=== PATIENT | female | born 1995 | race Caucasian/White ===

== ENCOUNTER 2017-11-09 23:40 | Emergency (ER) | payer MEDICAID, SELFPAY ==
[2017-11-09 23:44] VITALS: BP 143/86; PULSE 112; RESP 18; TEMP 37.4; O2SAT 99; BMI 35.7
[2017-11-10 00:13] LABS: Strep Scrn Group A (Rapid) Negative (Negative)
--- NOTE | 2017-11-10 01:22 | HMH.EDGENADL ---
ED Disposition Clinical Impression: Acute sinusitis Qualifiers: Sinusitis location: unspecified location Recurrence: not specified as recurrent Qualified Code(s): J01.90 - Acute sinusitis, unspecified Disposition: Home, Self-Care Condition on Discharge: Good Instructions: Sinusitis Additional Instructions: Please take the medications prescribed as directed, follow-up with PCP if not better within 5-7 days. Prescriptions: Amoxicillin/Potassium Clav [Augmentin 875-125 Tablet] 1 tab PO Q12H #14 tab Cetirizine HCl [Zyrtec] 10 mg PO DAILY #30 cap Forms: Work/School Release Time of Disposition: :24 - Critical Care Critical Care Time: No Attestation: On 11/09/17, the high probability of a clinically significant, sudden or life threatening deterioration of the following system(s) required my full and direct attention, intervention and personal management. The time I documented below is in addition to time spent performing reported procedures but includes the following listed in this critical care notation. Medical Decision Making - Medical Records Medical records reviewed: Yes: I reviewed the patient's medical records. Vital Signs: 11/09/17 23:44 Temperature 99.3 F Temperature Source Oral Pulse Rate [Right Radial] 112 H Respiratory Rate 18 Blood Pressure [Right Arm] 143/86 Blood Pressure Mean [Right Arm] 105 Blood Pressure Source [Right Arm] Automatic Cuff Blood Pressure Position [Right Arm] Sitting 02 Sat by Pulse Oximetry 99 Oxygen Delivery Method Room Air - Lab Data Lab results reviewed: Yes: I reviewed the patient's lab results. Lab Results 11/09/17 23:54: Influenza Type A Ag Negative, Influenza Type B Ag Negative, Group A Strep Rapid Negative Orders (Tests/Meds): ORDERS Category Date Time Status Strep Screen Confirmation Stat Micro 11/09/17 23:54 Received - Jose Carlos Inquiry Pt receiving controlled substance: No - Reevaluation(s) Time: 01:15 Reevaluation #1: Upon evaluation patient is asleep, in no acute distress, afebrile. Advised patient of results obtained, also need to follow-up with PCP within 2-3 days if not better. General Adult HPI - General Chief complaint: Shortness of Breath/Dyspnea Stated complaint: Coughing and Sore Throat Mode of Arrival: Ambulatory Limitations: No Limitations Description of Symptoms (Recalled from ER Triage Doc. by RN): PT REPORTS SORE THROAT, COUGH AND CONGESTION X3 DAYS - History of Present Illness HPI narrative: This is a 22-year-old female patient arriving to the emergency room with subjective fever, body aches, sore throat, cough and congestion cough for the past 5 days. Patient denies any recent travel, denies any recent exposure to sick contacts. MD complaint: Sore throat, congestion, body aches, subjective fever Onset (ago): day(s) (2) Severity scale (1-10): 2 Consistency: intermittent Relieving factors: medication (Motrin/Tylenol) Associated symptoms: denies other symptoms Treatments prior to arrival: other ([place] down) - Related Data Previous Rx's Medication Instructions Recorded Amoxicillin/Potassium Clav 1 tab PO Q12H #14 tab 11/10/17 [Augmentin 875-125 Tablet] Cetirizine HCl [Zyrtec] 10 mg PO DAILY #30 cap 11/10/17 Allergies Allergy/AdvReac Type Severity Reaction Status Date / Time strawberry Allergy Unknown HIVES, Verified 11/09/17 23:52 [From STRAWBERRIES SWELLING (FOOD/DRUG)] OF THROAT From STRAWBERRIES (FOOD/DRUG) Allergy Unknown HIVES, Uncoded 10/14/17 14:58 SWELLING OF THROAT [facility] History I have reviewed the patient's past medical history: Yes Other Surgeries: Yes: No Previous Surgery Amputation: No Fractures: No - *Social History Smoking Status: Current every day smoker Tobacco Type: cigarettes Alcohol Intake: never - Psychiatric History Expresses thoughts of harming self/others: None Suicide Plan Description: No Plan ROS Obtained: Yes All systems review
== END 2017-11-10 01:39 | disposition home or self-care (01) ==
PROVIDERS: Emergency Provider Emergency Medicine; Family Provider Emergency Medicine
DX: J01.90 Acute sinusitis, unspecified (principal)
CPT/HCPCS: 87275; 87276; 87430; 99282

== ENCOUNTER 2017-11-20 10:26 | Emergency (ER) | payer MEDICAID, SELFPAY ==
[2017-11-20 12:21] VITALS: BP 132/78; PULSE 86; RESP 20; TEMP 37.1; O2SAT 97; BMI 36.8
[2017-11-20 12:41] LABS: Color,Urine Yellow (Yellow)
[2017-11-20 12:42] LABS: Apearance,Urine Cloudy (Clear); Bilirubin,Urine Negative (Negative); Blood, Urine Negative (Negative); Glucose,Urine (UA) Negative (Negative); Ketones,Urine Negative (Negative); Protein,Urine Negative (Negative); UTC Leukocyte Esterase,Urine Trace (Negative); UTC Nitrate,Urine Negative (Negative); Urobilinogen,Urine 0.2 EU/dl (0.2)
--- NOTE | 2017-11-20 13:02 | HMH.EDUTC ---
[facility] [place] Disposition Clinical Impression: Vaginal leukorrhea, Vaginal odor Disposition: Home, Self-Care Condition on Discharge: Good Instructions: DI for Vaginal Discharge Additional Instructions: Start flagyl although I suggest you be further evaluated first. As we discussed, if this is bacterial vaginosis, this will treat it. However, if this is a sexually transmitted disease or yeast infection, this is not the appropriate treatment AND you are at risk for further damage until treated appropriately AND if you continue to have intercourse you risk exposing others. I advised an exam and further testing today but I understand you declined and would rather see the health department. I advise you call them TODAY and schedule a follow up appt ALVIN!!! avoid intercourse until further testing to rule out sexually transmitted infections Prescriptions: metroNIDAZOLE [metroNIDAZOLE 500mg Tablet] 500 mg PO BID #14 tab Referrals: Sree Galloway MD [Primary Care Provider] - (Call primary care, OB Dr. Diaz, or the health department immediately for follow up appointment. You need a pelvic exam and further testing to rule out sexually transmitted diseases and/or yeast infection as the cause and therefore, reduce your risk for complications due to untreated sexually transmitted diseases) Time of Disposition: 13:15 Medical Decision Making Vital Signs: 11/20/17 12:21 Temperature 98.7 F Temperature Source Temporal Artery Scan Pulse Rate [Right Radial] 86 Respiratory Rate 20 Blood Pressure [Right Arm] 132/78 Blood Pressure Mean [Right Arm] 96 Blood Pressure Source [Right Arm] Automatic Cuff Blood Pressure Position [Right Arm] Sitting 02 Sat by Pulse Oximetry 97 Oxygen Delivery Method Room Air - Lab Data Lab results reviewed: Yes: I reviewed the patient's lab results. Lab Results 11/20/17 12:39: Urine Color Yellow, Urine Appearance Cloudy, Urine pH 6.0, Ur Specific [place] 1.020, Urine Protein Negative, Urine Glucose (UA) Negative, Urine Ketones Negative, Urine Blood Negative, Urine Nitrate Negative, Urine Bilirubin Negative, Urine Urobilinogen 0.2, Ur Leukocyte Esterase Trace - Jose Carlos Inquiry Pt receiving controlled substance: No [facility] [place] HPI - General Stated complaint: discharge with order Time Seen by Provider: 11/20/17 13:03 Mode of Arrival: Family Vehicle Source of Information: Patient Limitations: No Limitations Description of Symptoms (Recalled from Triage Doc. by RN): PT STATES SHE HAS A VAGINAL INFECTION WITH DISCHARGE FOR 1 WEEK. HEENT Symptoms (Recalled from RN notes): No Resp Symptoms (Recalled from RN notes): No Skin Symptoms (Recalled from RN notes): No MS Symptoms (Recalled from RN notes): No Functional Status (Recalled from RN notes): NA - History of Present Illness Provider Complaint: c/o I think I have a bacterial infection down there . Vaginal discharge x 1 week. Started as clear and sticky, then thick and white and now since yesterday, terrible odor . New male sexual partner lately . Was with a different male 3 months prior. LMP earlier this month. Normal. Hasn't taken or tried anything this time . Reports a hx of vaginal bacterial infections approx every 3 months. Last one treatment with clindamycin started by Dr. Diaz after vaginal exam and testing . Didn't help. [facility] and started on flagyl. Requesting that again today and that is all I am here for . Denies abdominal pain currently. 3-4 days ago right suprapubic pain but that resolved quickly and hasn't reoccured. No pain with intercourse this week. - Related Data Previous Rx's Medication Instructions Recorded Amoxicillin/Potassium Clav 1 tab PO Q12H #14 tab 11/10/17 [Augmentin 875-125 Tablet] Cetirizine HCl [Zyrtec] 10 mg PO DAILY #30 cap 11/10/17 metroNIDAZOLE [metroNIDAZOLE 500mg 500 mg PO BID #14 tab 11/20/17 Tablet] Allergies Allergy/AdvReac Type Severity Reaction Status Date / Time joyce Beavers
--- NOTE | 2017-11-20 13:09 | ED_ITS ---
[facility] – [place] Disposition Clinical Impression: Vaginal leukorrhea, Vaginal odor Disposition: Home, Self-Care Condition on Discharge: Good Instructions: DI for Vaginal Discharge Additional Instructions: Start flagyl although I suggest you be further evaluated first. As we discussed, if this is bacterial vaginosis, this will treat it. However, if this is a sexually transmitted disease or yeast infection, this is not the appropriate treatment AND you are at risk for further damage until treated appropriately AND if you continue to have intercourse you risk exposing others. I advised an exam and further testing today but I understand you declined and would rather see the health department. I advise you call them TODAY and schedule a follow up appt ALVIN!!! avoid intercourse until further testing to rule out sexually transmitted infections Prescriptions: metroNIDAZOLE [metroNIDAZOLE 500mg Tablet] 500 mg PO BID #14 tab Referrals: Sree Galloway MD [Primary Care Provider] - (Call primary care, OB Dr. Diaz, or the health department immediately for follow up appointment. You need a pelvic exam and further testing to rule out sexually transmitted diseases and/or yeast infection as the cause and therefore, reduce your risk for complications due to untreated sexually transmitted diseases) Time of Disposition: 13:15 Medical Decision Making Vital Signs: 11/20/17 12:21 Temperature 98.7 F Temperature Source Temporal Artery Scan Pulse Rate [Right Radial] 86 Respiratory Rate 20 Blood Pressure [Right Arm] 132/78 Blood Pressure Mean [Right Arm] 96 Blood Pressure Source [Right Arm] Automatic Cuff Blood Pressure Position [Right Arm] Sitting 02 Sat by Pulse Oximetry 97 Oxygen Delivery Method Room Air - Lab Data Lab results reviewed: Yes: I reviewed the patient's lab results. Lab Results 11/20/17 12:39: Urine Color Yellow, Urine Appearance Cloudy, Urine pH 6.0, Ur Specific [place] 1.020, Urine Protein Negative, Urine Glucose (UA) Negative, Urine Ketones Negative, Urine Blood Negative, Urine Nitrate Negative, Urine Bilirubin Negative, Urine Urobilinogen 0.2, Ur Leukocyte Esterase Trace - Jose Carlos Inquiry Pt receiving controlled substance: No [facility] [place] HPI - General Stated complaint: discharge with order Time Seen by Provider: 11/20/17 13:03 Mode of Arrival: Family Vehicle Source of Information: Patient Limitations: No Limitations Description of Symptoms (Recalled from Triage Doc. by RN): PT STATES SHE HAS A VAGINAL INFECTION WITH DISCHARGE FOR 1 WEEK. HEENT Symptoms (Recalled from RN notes): No Resp Symptoms (Recalled from RN notes): No Skin Symptoms (Recalled from RN notes): No MS Symptoms (Recalled from RN notes): No Functional Status (Recalled from RN notes): NA - History of Present Illness Provider Complaint: c/o I think I have a bacterial infection down there . Vaginal discharge x 1 week. Started as clear and sticky, then thick and white and now since yesterday, terrible odor . New male sexual partner lately . Was with a different male 3 months prior. LMP earlier this month. Normal. Hasn't taken or tried anything this time . Reports a hx of vaginal bacterial infections approx every 3 months. Last one treatment with clindamycin started by Dr. Diaz after vaginal exam and testing . Didn't help. [facility] and started on flagyl. Requesting that again today and that is all I am here for . Denies abdominal pain currently. 3-4 days ago right suprapubic pain but that resolved quickly and hasn't re
== END 2017-11-20 13:19 | disposition home or self-care (01) ==
PROVIDERS: Emergency Provider Nurse Practitioner Family; Family Provider Emergency Medicine; PCP Emergency Medicine
DX: N89.8 Other specified noninflammatory disorders of vagina (principal); F17.210 Nicotine dependence, cigarettes, uncomplicated
CPT/HCPCS: 81003; 99201

== ENCOUNTER 2017-12-30 13:12 | Emergency (ER) | payer MEDICAID, SELFPAY ==
[2017-12-30 13:27] VITALS: BP 132/80; PULSE 92; RESP 18; TEMP 36.6; O2SAT 97; BMI 35.7
--- NOTE | 2017-12-30 13:37 | HMH.EDUTC ---
[facility] [place] Impression: Viral upper respiratory illness Disposition: Home, Self-Care Condition on Discharge: Good Instructions: DI for Viral Upper Respiratory Infection -- Adult Additional Instructions: * Monitor Temp. Tylenol and/or Ibuprofen as needed. ER if fever is no less than 101 despite alternating Tylenol and Ibuprofen * Encourage fluids, water, Gatorade, powerade, pedialyte if infant/toddler/or child * Warm salt water gargles for throat irritation *Warm fluids *Sore throat lozenges *Sleep elevated *humidifier or vaporizer Lots of rest Increase fluids, water, Gatorade, powerade *Flonase 2 sprays each nostril daily but may take 2-3 days to notice improvement with it *Bromfed may cause drowsiness. Know how it effect you or your child. Before driving, caring for small children or sending your child to school *Your throat swab was sent to lab for culture. Those results area typically sent to your primary care physician. Be sure to follow up in 2-3 days if no improvement so they can review those results and treat if necessary If you dont have primary care I recommend you get one, but in the mean time you will have to return to a walk in clinic Follow up IMMEDIATELY for new or worsening of symptoms OR no noticeable improvement over the next 48-72 hours. 911 immediately for any life threatening symptoms such as chest pain or difficulty breathing Although some tonsil stones may be difficult to see, they can still cause noticeable symptoms. Symptoms of tonsil stones can include: bad breath sore throat trouble swallowing ear pain ongoing cough swollen tonsils white or yellow debris on the tonsil Preventing tonsil stones: If you have tonsil stones, they may occur on a regular basis. Fortunately, there are steps you can take to prevent them. These steps include: practicing good oral hygiene, including cleaning the bacteria off the back of your tongue when you brush your teeth stopping smoking gargling with salt water drinking plenty of water to stay hydrated Gargling Gargling vigorously with salt water can ease throat discomfort and may help dislodge tonsil stones. Salt water may also help to change your mouth chemistry. It can also help get rid of the odor tonsil stones can cause. Dissolve 1/2 teaspoon salt in 8 ounces of warm water, and gargle. Cough You may first discover that you have tonsil stones when you cough one up. Energetic coughing can help loosen stones. Prescriptions: Brompheniramine/Pseudoephed/Dm [Bromfed DM Cough Syrup 5mL] 10 ml PO Q4HP PRN #350 ml PRN Reason: Cough Referrals: Sree Galloway MD [Primary Care Provider] - Forms: Work/School Release Time of Disposition: 13:48 Medical Decision Making - Medical Records Medical records reviewed: Yes: I reviewed the patient's medical records. Vital Signs: 12/30/17 13:27 Temperature 97.8 F Temperature Source Temporal Artery Scan Pulse Rate [Right] 92 H Respiratory Rate 18 Blood Pressure [Right Arm] 132/80 Blood Pressure Mean [Right Arm] 97 Blood Pressure Source [Right Arm] Automatic Cuff Blood Pressure Position [Right Arm] Sitting 02 Sat by Pulse Oximetry 97 Oxygen Delivery Method Room Air - Lab Data Lab results reviewed: Yes: I reviewed the patient's lab results. - Jose Carlos Inquiry Pt receiving controlled substance: No Jose Carlos was queried for this patient: No [facility] [place] - General Stated complaint: sore throat cough Mode of Arrival: Ambulatory Source of Information: Patient Limitations: No Limitations Description of Symptoms (Recalled from Triage Doc. by RN): SORE THROAT, COUGH HEENT Symptoms (Recalled from RN notes): Yes Resp Symptoms (Recalled from RN notes): No Skin Symptoms (Recalled from RN notes): No MS Symptoms (Recalled from RN notes): No Functional Status (Recalled from RN notes): N - History of Present Illness Provider Complaint: Patient state that she has been having sore throat, cough and chantel
--- NOTE | 2017-12-30 13:40 | ED_ITS ---
[facility] [place] Clinical Impression: Viral upper respiratory illness Disposition: Home, Self-Care Condition on Discharge: Good Instructions: DI for Viral Upper Respiratory Infection -- Adult Additional Instructions: * Monitor Temp. Tylenol and/or Ibuprofen as needed. ER if fever is no less than 101 despite alternating Tylenol and Ibuprofen * Encourage fluids, water, Gatorade, powerade, pedialyte if /toddler/or child * Warm salt water gargles for throat irritation *Warm fluids *Sore throat lozenges *Sleep elevated *humidifier or vaporizer Lots of rest Increase fluids, water, Gatorade, powerade *Flonase 2 sprays each nostril daily but may take 2-3 days to notice improvement with it *Bromfed may cause drowsiness. Know how it effect you or your child. Before driving, caring for small children or sending your child to school *Your throat swab was sent to lab for culture. Those results area typically sent to your primary care physician. Be sure to follow up in 2-3 days if no improvement so they can review those results and treat if necessary If you don? t have primary care I recommend you get one, but in the mean time you will have to return to a walk in clinic Follow up IMMEDIATELY for new or worsening of symptoms OR no noticeable improvement over the next 48-72 hours. 911 immediately for any life threatening symptoms such as chest pain or difficulty breathing Although some tonsil stones may be difficult to see, they can still cause noticeable symptoms. Symptoms of tonsil stones can include: * bad breath * sore throat * trouble swallowing * ear pain * ongoing cough * swollen tonsils * white or yellow debris on the tonsil Preventing tonsil stones: If you have tonsil stones, they may occur on a regular basis. Fortunately, there are steps you can take to prevent them. These steps include: * practicing good oral hygiene, including cleaning the bacteria off the back of your tongue when you brush your teeth * stopping smoking * gargling with salt water * drinking plenty of water to stay hydrated Gargling Gargling vigorously with salt water can ease throat discomfort and may help dislodge tonsil stones. Salt water may also help to change your mouth chemistry. It can also help get rid of the odor tonsil stones can cause. Dissolve 1/2 teaspoon salt in 8 ounces of warm water, and gargle. Cough You may first discover that you have tonsil stones when you cough one up. Energetic coughing can help loosen stones. Prescriptions: Brompheniramine/Pseudoephed/Dm [Bromfed DM Cough Syrup 5mL] 10 ml PO Q4HP PRN # 350 ml PRN Reason: Cough Referrals: Sree Galloway MD [Primary Care Provider] - Forms: Work/School Release Time of Disposition: 13:48 Medical Decision Making - Medical Records Medical records reviewed: Yes: I reviewed the patient's medical records. Vital Signs: 12/30/17 13:27 Temperature 97.8 F Temperature Source Temporal Artery Scan Pulse Rate [Right] 92 H Respiratory Rate 18 Blood Pressure [Right Arm] 132/80 Blood Pressure Mean [Right Arm] 97 Blood Pressure Source [Right Arm] Automatic Cuff Blood Pressure Position [Right Arm] Sitting 02 Sat by Pulse Oximetry 97 Oxygen Delivery Method Room Air - Lab Data Lab results reviewed: Yes: I reviewed the patient's lab results. - Jose Carlos Inquiry Pt receiving controlled substance: No Jose Carlos was queried for this patient: No [facility] [place] - General Stated complaint: sore throat cough Mod
[2017-12-30 13:43] LABS: UTC Influenza A Antigen Negative (Negative); UTC Influenza B Antigen Negative (Negative); UTC Strep Screen (Rapid) Negative (Negative)
[2017-12-30 13:48] VITALS: BP 132/80; PULSE 90; RESP 18; TEMP 36.6
== END 2017-12-30 13:51 | disposition home or self-care (01) ==
PROVIDERS: Emergency Provider Nurse Practitioner; Family Provider Emergency Medicine; PCP Emergency Medicine
DX: J06.9 Acute upper respiratory infection, unspecified (principal); F17.210 Nicotine dependence, cigarettes, uncomplicated
CPT/HCPCS: 87804; 87880; 99203

== ENCOUNTER 2018-01-28 13:26 | Emergency (ER) | payer MEDICAID, SELFPAY ==
[2018-01-28 13:32] VITALS: BP 134/47; PULSE 87; RESP 16; TEMP 36.7; O2SAT 97; BMI 36.4
[2018-01-28 14:10] LABS: Strep Scrn Group A (Rapid) Negative (Negative)
--- NOTE | 2018-01-28 14:22 | HMH.EDWEAK ---
ED Disposition Clinical Impression: Pharyngitis Qualifiers: Pharyngitis/tonsillitis etiology: unspecified etiology Qualified Code(s): J02.9 - Acute pharyngitis, unspecified Disposition: Home, Self-Care Condition on Discharge: Good Instructions: DI for Pharyngitis/Tonsillopharyngitis -- Adult Prescriptions: Amoxicillin/Potassium Clav [Augmentin 875-125 Tablet] 1 tab PO Q12H #20 tab Referrals: Sree Galloway MD [Primary Care Provider] - Time of Disposition: 14:27 - Critical Care Critical Care Time: No Attestation: On 01/28/18, the high probability of a clinically significant, sudden or life threatening deterioration of the following system(s) required my full and direct attention, intervention and personal management. The time I documented below is in addition to time spent performing reported procedures but includes the following listed in this critical care notation. Medical Decision Making - Medical Records Medical records reviewed: Yes: I reviewed the patient's medical records. - Jose Carlos Inquiry Pt receiving controlled substance: No Vital Signs: 01/28/18 13:32 01/28/18 14:42 Temperature 98.0 F 98.5 F Temperature Source Temporal Artery Scan Oral Pulse Rate 80 Pulse Rate [Left Radial] 87 Respiratory Rate 16 18 Blood Pressure 136/72 Blood Pressure [Right Arm] 134/47 Blood Pressure Mean [Right Arm] 76 Blood Pressure Source Automatic Cuff Blood Pressure Source [Right Arm] Automatic Cuff Blood Pressure Position Sitting Blood Pressure Position [Right Arm] Sitting 02 Sat by Pulse Oximetry 97 Oxygen Delivery Method Room Air Room Air - Lab Data Lab results reviewed: Yes: I reviewed the patient's lab results. Lab Results 01/28/18 13:45: Influenza Type A Ag Negative, Influenza Type B Ag Negative, Group A Strep Rapid Negative Orders (Tests/Meds): ORDERS Category Date Time Status Strep Screen Confirmation Stat Micro 01/28/18 13:45 Received - Reevaluation(s) Time: 14:20 Reevaluation #1: Patient appears to be medically stable, no acute distress, advised her that she will be started on antibiotics, given the physical exam, advised her to alternate Motrin Tylenol for pain control, drink plenty of fluids and follow-up with PCP if not better. Weakness HPI - General Chief complaint: Weakness Stated complaint: sore throat, coughing, chest congestion Time Seen by Provider: 01/28/18 14:27 Mode of Arrival: Ambulatory Limitations: No Limitations Description of Symptoms (Recalled from ER Triage Doc. by RN): Coughing and sore throat for three days. Productive cough with greenish/brown mucus. - History of Present Illness HPI Narrative: Patient is a 23-year-old female patient presented emergency room with subjective fever, runny nose and sore throat for the past 2 days, exposed to other sick contacts. Patient has a recent travel. Patient denies any shortness of breath, productive cough. Her nasal discharge is yellowish. MD Complaint: generalized weakness, lack of energy Onset (ago): day(s) (2) Duration: intermittent Location: generalized Associated symptoms: fever/chills, other (Sore throat, runny nose) - Related Data Home Medications Medication Instructions Recorded Confirmed Cetirizine HCl [Zyrtec] 10 mg PO DAILY 01/28/18 01/28/18 Previous Rx's Medication Instructions Recorded Amoxicillin/Potassium Clav 1 tab PO Q12H #20 tab 01/28/18 [Augmentin 875-125 Tablet] Allergies Allergy/AdvReac Type Severity Reaction Status Date / Time strawberry Allergy Unknown HIVES, Verified 12/30/17 13:31 [From STRAWBERRIES SWELLING (FOOD/DRUG)] OF THROAT azithromycin Allergy Verified 12/30/17 13:31 From STRAWBERRIES (FOOD/DRUG) Allergy Unknown HIVES, Uncoded 10/14/17 14:58 SWELLING OF THROAT [facility] History I have reviewed the patient's past medical history: Yes Medical History: Denies:: Cancer, Diabetes Mellitus Type 1, Diabetes Mary Alice
[2018-01-28 14:42] VITALS: BP 136/72; PULSE 80; RESP 18; TEMP 36.9; O2SAT 97
== END 2018-01-28 14:42 | disposition home or self-care (01) ==
PROVIDERS: Emergency Provider Emergency Medicine; Family Provider Emergency Medicine; PCP Emergency Medicine
DX: J02.9 Acute pharyngitis, unspecified (principal); E11.9 Type 2 diabetes mellitus without complications; F17.210 Nicotine dependence, cigarettes, uncomplicated
CPT/HCPCS: 87275; 87276; 87430; 99281

== ENCOUNTER → 2018-02-23 16:59 | Outpatient (CLI) | payer MEDICAID, SELFPAY ==
[2018-02-23 17:18] LABS: Urine Pregnancy, HCG Qual. Negative (Negative)
[2018-02-23 17:31] LABS: Basophils % 0.5 % (0.1-2.0); Eosinophils # 0.1 K/mm3 (0.0-0.4); Hematocrit 46.1 % (37.0-47.0); Hemoglobin 15.5 g/dL (12.2-16.2); Lymphocytes # 2.1 K/mm3 (0.7-4.5); Lymphocytes % 33.8 K/mm3 (10-50); Mean Corpuscular HGB Conc 33.7 g/dL (31.8-35.4); Mean Corpuscular Hemoglobin 31.6 pg (27.0-31.2); Mean Corpuscular Volume 93.7 fl (81-99); Mean Platelet Volume 9.5 fl (7.4-10.4); Monocytes # 0.4 K/mm3 (0.1-1.0); Monocytes % 6.1 % (1.7-9.3); Neutrophils # 3.7 K/mm3 (1.8-7.8); Neutrophils % 58.7 % (37.0-80.0); Platelet Count 151 K/mm3 (142-424); Red Blood Count 4.92 M/mm3 (4.20-5.40); Red Cell Distribution Width 12.4 % (11.5-17.5); White Blood Count 6.3 K/mm3 (4.8-10.8)
== END ==
PROVIDERS: Visit Provider Otolaryngology
DX: J35.01 Chronic tonsillitis (principal); J35.8 Other chronic diseases of tonsils and adenoids
CPT/HCPCS: 36415; 81025; 85025

== ENCOUNTER → 2018-10-15 16:52 | Outpatient (CLI) | payer MEDICAID, SELFPAY ==
[2018-10-15 17:13] LABS: Basophils % 0.4 % (0.1-2.0); Eosinophils # 0.1 K/mm3 (0.0-0.4); Eosinophils % 0.7 % (0.1-12.0); Hemoglobin 15.7 g/dL (12.2-16.2); Mean Corpuscular HGB Conc 33.3 g/dL (31.8-35.4); Mean Corpuscular Hemoglobin 31.6 pg (27.0-31.2); Mean Corpuscular Volume 94.7 fl (81-99); Mean Platelet Volume 9.9 fl (7.4-10.4); Monocytes # 0.3 K/mm3 (0.1-1.0); Neutrophils # 4.8 K/mm3 (1.8-7.8); Neutrophils % 66.8 % (37.0-80.0); Platelet Count 171 K/mm3 (142-424); Red Blood Count 4.96 M/mm3 (4.20-5.40); Red Cell Distribution Width 13.2 % (11.5-17.5); White Blood Count 7.2 K/mm3 (4.8-10.8)
[2018-10-15 18:11] LABS: Alanine Aminotransferase 22 U/L (12-78); Albumin Level 3.6 gm/dL (3.4-5.0); Alkaline Phosphatase 79 U/L (46-116); Anion Gap 11.9 mEq/L (5-15); Aspartate Amino Transferase 15 U/L (15-37); Bilirubin,Total 0.3 mg/dL (0.2-1.0); Blood Urea Nitrogen 7 mg/dL (7-18); Calcium 8.7 mg/dL (8.5-10.1); Carbon Dioxide 26 mmol/L (21.0-32.0); Chloride 105 mmol/L (98-107); Chol/HDL Ratio 4.8 (1-3.5); Cholesterol 189 mg/dL (140-200); Creatinine,Serum 0.66 mg/dL (0.55-1.02); Estimated Glomerular Filt Rate 112 ml/min (>60); GFR (African American) 136 ML/MIN (>60); Globulin 3.5 gm/dl (1.3-3.2); Glucose 100 mg/dL (74-106); HDL Cholesterol 39 mg/dL (29-89); LDL Cholesterol 95 mg/dL (0-130); Potassium 3.9 mmoL/L (3.5-5.1); Sodium 139 mmol/L (136-145); T4 (Thyroxine) 7.8 ug/dl (4.7-13.3); Thyroid Stimulating Hormone 1.37 uIU/ml (0.358-3.740); Total Protein,Serum 7.1 gm/dL (6.4-8.2); Triglycerides 277 mg/dL (30-200); VLDL Cholesterol 55 mg/dL (0-40)
[2018-10-17 14:01] LABS: Vitamin D 25 Hydroxy 22.3 ng/mL (30.0-100.0)
== END ==
PROVIDERS: Visit Provider Nurse Practitioner Family
DX: R53.83 Other fatigue (principal)
CPT/HCPCS: 80053; 80061; 82652; 84436; 84443; 85025

== ENCOUNTER → 2019-10-08 12:51 | Outpatient (CLI) | payer OTHER, SELFPAY ==
--- NOTE | 2019-10-08 12:53 | US_ITS ---
PROCEDURE: US OB TRANSVAGINAL CLINICAL INDICATION: US OB Dates COMPARISON: No exams were available for comparison FINDINGS: An intrauterine gestational sac is present with a pole with a crown-rump length of 2.02 cm correlating to gestational age of 8.71 week. heart tones are present with an FHR of 170 bpm. Yolk sac is noted. IMPRESSION: Live IUP at 8 weeks 5 Estimated due date by Ultrasound is 05/14/2020 Dictated by: Parrish Guzman MD 10/08/2019 14:21 Electronically signed by Parrish Guzman MD in [facility] 10/08/2019 14:21
== END ==
PROVIDERS: PCP Emergency Medicine; Visit Provider Obstetrics & Gynecology
DX: O26.841 Uterine size-date discrepancy, first trimester (principal)
CPT/HCPCS: 76817

== ENCOUNTER → 2019-11-03 16:20 | Outpatient (CLI) | payer OTHER, SELFPAY ==
[2019-11-03 16:46] LABS: Basophils % 0.2 % (0.1-2.0); Eosinophils # 0.1 K/mm3 (0.0-0.4); Eosinophils % 0.8 % (0.1-12.0); Hematocrit 43.6 % (37.0-47.0); Hemoglobin 14.9 g/dL (12.2-16.2); Lymphocytes # 1.9 K/mm3 (0.7-4.5); Mean Corpuscular HGB Conc 34.1 g/dL (31.8-35.4); Mean Corpuscular Hemoglobin 31.7 pg (27.0-31.2); Mean Platelet Volume 9.1 fl (7.4-10.4); Monocytes # 0.4 K/mm3 (0.1-1.0); Monocytes % 3.9 % (1.7-9.3); Neutrophils # 7.3 K/mm3 (1.8-7.8); Neutrophils % 75.1 % (37.0-80.0); Platelet Count 176 K/mm3 (142-424); Red Blood Count 4.69 M/mm3 (4.20-5.40); White Blood Count 9.7 K/mm3 (4.8-10.8)
[2019-11-05 19:03] LABS: HIV Screen 4th Generation wRfx Non Reactive (Non Reactive); Hepatitis B Surface Antigen Negative (Negative); Hepatitis C Antibody <0.1 s/co ratio (0.0-0.9); Rapid Plasma Reagin Ab Titer Non Reactive (NonRea<1:1); Rubella Antibodies, IgG 2.11 index (Immune >0.99)
== END ==
PROVIDERS: Visit Provider Obstetrics & Gynecology
DX: Z34.90 Encounter for supervision of normal pregnancy, unspecified, unspecified trimester (principal)
CPT/HCPCS: 36415; 85025; 86592; 86703; 86762; 86850; 87340; 87380; G0432

== ENCOUNTER → 2019-12-29 12:05 | Outpatient (CLI) | payer OTHER, SELFPAY ==
--- NOTE | 2019-12-29 12:09 | US_ITS ---
PROCEDURE: US OB /MATERNAL DETAIL CLINICAL INDICATION: US OB Complete COMPARISON: US OB TRANSVAGINAL from 10/08/2019 FINDINGS: There is a single live fetus present in breech presentation. heart and body motion noted. The placenta is posterior in implantation. The cervix is closed and measures 4.8 cm transabdominal. Complete survey performed and was unremarkable on the submitted images as in PACS. No discrete anomalies identified on survey imaging by technologist. Active fetus. Three-vessel cord with satisfactory umbilical cord insertion. 4- chamber heart noted. Survey of brain & ventricles Unremarkable. Face and neck survey unremarkable. Diaphragm and chest views unremarkable. Abdomen: Both kidneys noted and unremarkable. Stomach noted and satisfactory. Spine: Survey of the spine satisfactory with no anomalies identified nor imaged. Both arms and legs noted. Amniotic Fluid: Adequate. Maternal adnexa: No significant findings. Measurements: Average ultrasound age 20weeks 3days. Gestational Age 20 weeks 2 days Estimated due date by ultrasound age 0705/14/2020. Estimated weight 345g BPD = 20weeks 4days OFD = 20 weeks 6 days HC = 20weeks AC = 20weeks 2days FL = 20weeks 4days Growth Percentile= 46% Heart Rate = 146bpm Cerebellum = 20weeks 3days Humerus = HC/AC is 1.16 CI is 0.77 FL/BPD is 0.7 FL/AC is 0.22 IMPRESSION: There is a single live fetus present which is in breech presentation with an average ultrasound age 20 weeks and 3 days. All parameters correlate with no obvious anomalies. Please see above for detail. Dictated by: Parrish Guzman MD 12/29/2019 19:22 Electronically signed by Parrish Guzman MD in [place] 12/29/2019 19:22
== END ==
PROVIDERS: PCP Emergency Medicine; Visit Provider Obstetrics & Gynecology
DX: Z36.0 Encounter for antenatal screening for chromosomal anomalies (principal)
CPT/HCPCS: 76811

== ENCOUNTER → 2020-02-17 11:36 | Outpatient (CLI) | payer OTHER, SELFPAY ==
[2020-02-17 12:20] LABS: Amphetamine/Metha Screen,Urine Negative ng/ml (<1000); Benzodiazepines Screen,Urine Negative ng/ml (<200)
[2020-02-17 12:21] LABS: Barbiturates Screen,Urine Negative ng/ml (<200)
[2020-02-17 12:22] LABS: Cannabinoid Screen,Urine Negative ng/ml (<50); Cocaine Screen,Urine Negative ng/ml (<300)
[2020-02-17 12:23] LABS: Methadone Screen,Urine Negative ng/ml (<300)
[2020-02-17 12:24] LABS: Opiate Screen,Urine Negative ng/ml (<300); Phencyclidine Screen,Urine Negative ng/ml (<25)
== END ==
PROVIDERS: Visit Provider Obstetrics & Gynecology
DX: Z34.90 Encounter for supervision of normal pregnancy, unspecified, unspecified trimester (principal)
CPT/HCPCS: 80305

== ENCOUNTER → 2020-02-18 07:24 | Outpatient (CLI) | payer OTHER, SELFPAY ==
[2020-02-18 08:18] LABS: Glucose,Fasting 75 mg/dl (74-100)
[2020-02-18 09:17] LABS: Glucose 1 Hour 143 mg/dL (74-100)
== END ==
PROVIDERS: Visit Provider Obstetrics & Gynecology
DX: Z34.90 Encounter for supervision of normal pregnancy, unspecified, unspecified trimester (principal)
CPT/HCPCS: 36415; 82951

== ENCOUNTER → 2020-04-14 13:44 | Outpatient (CLI) | payer OTHER, SELFPAY ==
--- NOTE | 2020-04-14 13:46 | US_ITS ---
PROCEDURE: US OB BIOPHYSICAL PROFILE CLINICAL INDICATION: US OB- BPP Growth DANIEL-SGA TECHNIQUE: FINDINGS: The following parameters are obtained: Single live fetus is present in cephalic presentation. The cervix is closed and measures 3.5 cm transabdominal. The placenta is posterior and grade 3. Average ultrasound age is Average 35weeks 4days Estimated due date by ultrasound is 05/15/2020. Estimated weight is 2,689g. BPD 35 weeks 4 days, OFD 35 weeks 4 days, HC 35 weeks 1 day, AC 35 weeks 4 days, FL 35 weeks 4 days. heart rate: 140bpm bpm. HC/AC: 0.99 Cephalic index: 0.8 FL/BPD: 0.79 FL/AC: 0.22 Amniotic fluid index: Not performed Qualitative AFV: 2 breathing movements: 2 Gross body movements: 2 Tone: 2 Biophysical profile score: 8 IMPRESSION: There is a single live fetus which is in cephalic presentation with an average ultrasound age of 35 weeks 4 days with an estimated weight 2689 g. This is 46 percentile. The placenta is posterior and grade 3 Biophysical profile is 8 of 8 Dictated by: Parrish Guzman MD 04/14/2020 15:54 Electronically signed by Parrish Guzman MD in [place] 04/14/2020 15:54
== END ==
PROVIDERS: PCP Emergency Medicine; Visit Provider Obstetrics & Gynecology
DX: O36.5990 Maternal care for other known or suspected poor fetal growth, unspecified trimester, not applicable or unspecified (principal)
CPT/HCPCS: 76816; 76819

== ENCOUNTER → 2020-04-18 15:25 | Outpatient (CLI) | payer OTHER, SELFPAY ==
[2020-04-18 18:19] LABS: Barbiturates Screen,Urine Negative ng/ml (<200); Benzodiazepines Screen,Urine Negative ng/ml (<200)
[2020-04-18 18:20] LABS: Amphetamine/Metha Screen,Urine Negative ng/ml (<1000); Cannabinoid Screen,Urine Negative ng/ml (<50)
[2020-04-18 18:21] LABS: Cocaine Screen,Urine Negative ng/ml (<300)
[2020-04-18 18:22] LABS: Methadone Screen,Urine Negative ng/ml (<300); Opiate Screen,Urine Negative ng/ml (<300)
[2020-04-18 18:23] LABS: Phencyclidine Screen,Urine Negative ng/ml (<25)
== END ==
PROVIDERS: Visit Provider Obstetrics & Gynecology
DX: Z34.90 Encounter for supervision of normal pregnancy, unspecified, unspecified trimester (principal)
CPT/HCPCS: 80305; 86403

== ENCOUNTER 2020-05-11 07:41 | Outpatient (CLI) | payer OTHER, SELFPAY ==
[2020-05-11 07:57] VITALS: BMI 36.6
[2020-05-11 08:38] VITALS: BP 116/59; PULSE 99; RESP 18; TEMP 36.6; O2SAT 96; BMI 37.5
== END 2020-05-11 08:50 | disposition home or self-care (01) ==
LOC: OBOUT 07:43 → OB 07:48
PROVIDERS: PCP Emergency Medicine; Visit Provider Obstetrics & Gynecology
DX: Z34.90 Encounter for supervision of normal pregnancy, unspecified, unspecified trimester (principal)
CPT/HCPCS: G0463

== ENCOUNTER 2020-05-11 21:12 | Inpatient (IN) | payer OTHER, SELFPAY ==
[2020-05-11 20:22] VITALS: BMI 38.1
[2020-05-11 20:26] LABS: Appearance,Urine CLOUDY (Clear); Bilirubin,Urine Negative (Negative); Blood, Urine 1+ (Negative); Color,Urine YELLOW (Yellow); Glucose,Urine (UA) Negative (Negative); Ketones,Urine Negative (Negative); Leukocyte Esterase,Urine 2+ (Negative); Microscopic, Urine URINE MICROSCOPIC (MICROSCOPIC); Nitrate,Urine Negative (Negative); Protein,Urine Negative (Negative); Urobilinogen,Urine 0.2 EU/dl (0.2)
[2020-05-11 20:32] LABS: Bacteria,Urine 2+ /lpf; Mucus,Urine Trace /lpf; RBC,Urine Occasional #/hpf (0-3); Squamous Epithelial Cell,Urine 20-50 #/hpf (0-5); WBC,Urine 20-50 #/hpf (0-3)
[2020-05-11 20:38] LABS: Barbiturates Screen,Urine Negative ng/ml (<200); Benzodiazepines Screen,Urine Negative ng/ml (<200)
[2020-05-11 20:39] LABS: Amphetamine/Metha Screen,Urine Negative ng/ml (<1000)
[2020-05-11 20:40] LABS: Cannabinoid Screen,Urine Negative ng/ml (<50); Cocaine Screen,Urine Negative ng/ml (<300)
[2020-05-11 20:41] LABS: Methadone Screen,Urine Negative ng/ml (<300)
[2020-05-11 20:42] LABS: Opiate Screen,Urine Negative ng/ml (<300); Phencyclidine Screen,Urine Negative ng/ml (<25)
[2020-05-11 20:52] VITALS: BP 130/66; PULSE 88; RESP 22; TEMP 36.7; O2SAT 96; BMI 38.1
[2020-05-11 21:28] LABS: Basophils % 0.1 % (0.1-2.0); Eosinophils # 0.1 K/mm3 (0.0-0.4); Eosinophils % 0.4 % (0.1-12.0); Hematocrit 37.7 % (37.0-47.0); Hemoglobin 13.4 g/dL (12.2-16.2); Lymphocytes # 1.8 K/mm3 (0.7-4.5); Lymphocytes % 10.5 % (10-50); Mean Corpuscular HGB Conc 35.4 g/dL (31.8-35.4); Mean Corpuscular Volume 84.8 fl (81-99); Mean Platelet Volume 10.2 fl (7.4-10.4); Monocytes # 0.5 K/mm3 (0.1-1.0); Monocytes % 2.7 % (1.7-9.3); Neutrophils # 14.5 K/mm3 (1.8-7.8); Neutrophils % 86.4 % (37.0-80.0); Platelet Count 141 K/mm3 (142-424); Red Blood Count 4.45 M/mm3 (4.20-5.40); Red Cell Distribution Width 14.7 % (11.5-17.5); White Blood Count 16.8 K/mm3 (4.8-10.8)
[2020-05-11 21:58] LABS: MANUAL DIFFERENTIAL MANUAL DIFFERENTIAL (MANUAL DIFF)
[2020-05-11 22:04] LABS: Coronavirus 19 IgG Antibody Negative (Negative); Coronavirus 19 IgM Antibody Negative (Negative)
--- NOTE | 2020-05-11 22:26 | P.PN_ITS ---
[facility] Anesthesia Checklist - Patient Identification Patient Identification: Arm Band - Structural Data Admitted From: Home Planned Operative Procedure/s: labor epidural Consent for Planned Operative Procedure(s) Verified: Yes Verified Documents: Surgical Consent, History and Physical - NPO Status Verified Time NPO: 00:00 - Additional verifications Anesthesia Reactions: No Hx Blood Transfusions: No Blood Transfusion Reaction: No - Airway Assessment C-Spine Mobility Assessed: Yes TMJ Mobility Assessed: Yes Dentition: Good Dentition - Neurological Assessment Level of Consciousness: Awake, Alert - Anesthesia Plan Anesthesia Risk discussed: Yes Anesthesia Plan: Verified ASA Class: II Anesthesia Type: Epidural [facility] History I have reviewed the patient's past medical history: Yes Medical History: Denies:: Cancer, Diabetes Mellitus Type 1, Diabetes Mellitus Type 2, Hypertension, Internal Pacemaker, MRSA, Seizures *Have you ever received a pneumonia vaccine?: No *Have you received a flu vaccine this season?: No Other Medical History: Reports: Other. Denies: Blood Transfusion Reaction Anesthesia experience/problems:: nac Laterality Cases: Bilateral: Tonsillectomy, Other Other Surgeries: Yes: No Previous Surgery. No: , Pacemaker Amputation: No Fractures: No - *Social History Smoking Status: Current every day smoker Tobacco Type: cigarettes # Packs/Day (cigarettes): 1 #Yrs smoked (if former smoker): 6 Alcohol Intake: never Alcohol Intake Frequency:: other Substance Use Type: denies use, marijuana, prescription drug *Occupational Status:: employed Housing: house *Travel in the last 8 weeks: None Family Hx:: Hyperlipidemia, Hypertension Para: 0
[2020-05-11 23:01] LABS: Lymphocytes % 8 % (10-50); Monocytes % 2 % (2-9); Neutrophils % 89 % (42-76); Platelet Estimate Normal; RBC Morphology Normal; Total Cells Counted 100
[2020-05-12] VITALS (8 sets, daily range): BP systolic 90–124; BP diastolic 33–69; PULSE 84–93; RESP 16–18; TEMP 36.6–36.8; O2SAT 95–98
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
[2020-05-12 13:01] LABS: Cord Blood PH 7.34 (7.35-7.45)
--- NOTE | 2020-05-12 13:36 | P.PN_ITS ---
[facility] Anesthesia Record Part I Intake, IV Amount: 2,000 Estimated blood loss (mL): 600 Urine output (mL): 300 Blood Pressure: 104/33 SaO2: 97 Pulse Rate: 93 Respiratory Rate: 16 Temperature: 98 F Patient is:: Awake, Stable Stable to PACU at:: 13:30
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
--- NOTE | 2020-05-12 13:56 | P.OP_ITS ---
Date of procedure: 05/12/20 Pre-op Diagnosis:: 1. IUP 40 wks 2. tachycardia 3. Failure to progress in labor Post-op Diagnosis:: same Procedure performed:: Primary LTCS Surgeon:: Cecelia Eric MD [employer] SUPERINTENDENT:: Mahendra Meza Anesthesia: epidural Estimated blood loss (mL): 600 Operative findings:: meconium stained fluid, liveborn male infant Operative note:: The patient was taken to the OR and adequate anesthesia confirmed. She was prepped and draped in normal sterile fashion. A pfannenstiel skin incision was made with the scalpel and carried down to the fascia. The fascia was incised in the midline and sharply dissected off the rectus muscles. The muscles were in the midline and the peritoneum was entered sharply and extended bluntly. The Eliseo-O self retaining retractor was placed in the abdomen and a bladder flap was created. The uterus was incised in the lower uterine segment in a transverse fashion and extended bluntly. Meconium stained fluid noted. The was delivered in controlled fashion, without complication or shoulder dystocia. The was vigorous at and handed to awaiting pediatricians for evaluation after cord clamped and cut. Cord blood was collected and a cord segment was preserved. The placenta was manually extracted and noted to be intact. The uterus was repaired with 0-vicryl in a running/locked fashion. The peritoneum was closed with 2-0 vicryl in a running fashion. The fascia was closed with #1 vicryl in a running fashion. The subcutaneous fat was closed with 2-0 vicryl in an interrupted fashion. The skin was closed with liliana. The patient tolerated the procedure well. Sponge, lap, needle and instrument counts were correct x 2. She was taken to PACU awake and in stable condition. Condition: stable Disposition: PACU Specimens:: umbilical blood for cord pH Complications:: none
--- NOTE | 2020-05-12 14:35 | SW/DCPLANNER ---
Addendum entered by Brenna Maurer 05/15/20 10:05: Per nursing staff ([place]) patient was appropriate with over the weekend. Patient will discharge home with infant today. Original Note: I have received a referral for this patient regarding previous THC use. I visited with patient, infant (Felisha Lopez Braden Banks) and infants father (Parviz Banks 01/15/92). Patient, and father will reside at [address] [place] [address] in [place]. Patients contact number is [phone]. Infants father has one other child: Ynes Banks 09/16/18. Patient had several negative urine screen: 09/29/19, 02/17/20, 04/18/20 and 05/11/20. Patient did not test positive drug . Patient will be using WIC and would like for me to contact [employer] regarding her interest in the program. Patient does have: carseat, crib, diapers, clothing and will be able to afford formula if weekend discharge. Patients nurse (Elis) anticipates patient discharging on Friday05/15/20. I will follow up with OB staff on Friday regarding if patient/father are appropriate with infant.
--- NOTE | 2020-05-12 15:26 | HMH.ANESII ---
[facility] Anesthesia Record Part II Discharge Time: 14:00 Destination: Obstetric PACU nurse assessment reviewed?: Yes Patient Condition:: Good Anesthesia Complications:: None Swallowing reflex intact?: Yes Cyanosis?: No Blood Pressure: 114/55 Pulse Rate: 84 Temperature: 98 F Mental Status: Alert & Oriented Pain level:: 0 Nausea and/or vomitting:: None Intake, IV Amount: 0
[2020-05-13 00:16] LABS: POC Glucose,Bedside 60 (70-110)
[2020-05-13 06:19] LABS: Hematocrit 31.9 % (37.0-47.0)
[2020-05-13 08:10] VITALS: BP 101/57; PULSE 66; RESP 16; TEMP 36.7; O2SAT 96
--- NOTE | 2020-05-13 10:24 | P.PN_ITS ---
Internal Medicine - PN: Subj *Date: 05/13/20 *Time: 10:24 Interval history: She is doing very well this morning. She is eating and drinking and ambulating. She is bottlefeeding. Her lochia is normal. Exam Vital signs and Labs for Last 24 Hours: Temp Pulse Resp BP Pulse Ox 98.1 F 66 16 101/57 L 96 05/13/20 08:10 05/13/20 08:10 05/13/20 08:10 05/13/20 08:10 05/13/20 08:10 Laboratory Results - last 24 hr 05/12/20 12:57: Cord ABG pH 7.34 L 05/13/20 00:14: POC Glucose 60 L 05/13/20 05:45: Hgb 11.0 L, Hct 31.9 L I & O for Last 24 hours: Intake & Output 05/10/20 05/11/20 05/12/20 05/13/20 11:59 11:59 11:59 11:59 Intake Total 1999 Output Total 350 / 350 Balance -350 / -350 1999 Weight 229 lb 0.012 oz Microbiology Reports for the Last 24 Hours: Microbiology 05/11/20 20:07 Urine,Clean Catch Urine Culture - Preliminary - Constitutional no acute distress - *Routine HEENT Exam Head: Present: normocephalic Eye: Present: EOMI, PERRL ENT: Present: mucous membranes moist Assessment and Plan (1) pelvic disproportion delivered Current visit: Yes Status: Acute Category: Medical Code(s): O33.9 - Maternal care for disproportion, unspecified (2) delivery delivered Current visit: Yes Status: Acute Category: Medical Code(s): O82 - Enco unter for delivery without indication - Assessment and plan all Dx Assessment and Plan for all problems:: She continues to do well. She is bottlefeeding. Her lochia is normal. She would like to go home tomorrow.
[2020-05-13 13:00] VITALS: BP 124/68; PULSE 89; RESP 18; TEMP 36.6; O2SAT 96
[2020-05-13 16:15] VITALS: BP 107/54; PULSE 75; RESP 16; TEMP 36.8; O2SAT 98
--- NOTE | 2020-05-14 10:07 | HMH.ACPN2 ---
Internal Medicine - PN: Subj *Date: 05/14/20 *Time: 10:07 Interval history: She is doing well. She is eating and drinking and ambulating. She is bottlefeeding. Exam Vital signs and Labs for Last 24 Hours: Temp Pulse Resp BP Pulse Ox 98.2 F 75 16 107/54 L 98 05/13/20 16:15 05/13/20 16:15 05/13/20 16:15 05/13/20 16:15 05/13/20 16:15 I & O for Last 24 hours: Intake & Output 05/11/20 05/12/20 05/13/20 05/14/20 11:59 11:59 11:59 11:59 Intake Total 1999 Output Total 350 / 350 Balance -350 / -350 1999 Weight 229 lb 0.012 oz Microbiology Reports for the Last 24 Hours: Microbiology 05/11/20 20:07 Urine,Clean Catch Urine Culture - Final Multiple organisms, suggests contamination. - Constitutional no acute distress - *Routine HEENT Exam Head: Present: normocephalic Eye: Present: EOMI, PERRL ENT: Present: mucous membranes moist Assessment and Plan (1) pelvic disproportion delivered Current visit: Yes Status: Acute Category: Medical Code(s): O33.9 - Maternal care for disproportion, unspecified (2) delivery delivered Current visit: Yes Status: Acute Category: Medical Code(s): O82 - Encounter for delivery without indication - Assessment and plan all Dx Assessment and Plan for all problems:: She is doing well. She will be discharged home tomorrow.
[2020-05-14 19:43] VITALS: BP 97/51; PULSE 80; RESP 18; TEMP 36.7; O2SAT 97
[2020-05-15 00:07] VITALS: BP 136/68; PULSE 90; RESP 18; TEMP 36.4; O2SAT 97
[2020-05-15 04:02] VITALS: BP 90/53; PULSE 75; RESP 18; TEMP 36.7; O2SAT 98
--- NOTE | 2020-05-15 07:30 | P.CONPHA_ITS ---
[facility] Pharmacy VTE Monitoring - Patient Demographics Admission date: 05/12/20 Report Date: 05/15/20 Time: 07:30 Allergies/Adverse Reactions: Patient Allergies amoxicillin Allergy (Mild, Verified 05/09/20 15:09) upseet belly; diarrhea strawberry [From [facility] (FOOD/DRUG)] Allergy (Unknown, Verified 05/09/20 15:09) HIVES, SWELLING OF THROAT azithromycin Allergy (Verified 05/09/20 15:09) codeine Allergy (Verified 05/09/20 15:09) From [employer] (FOOD/DRUG) Allergy (Unknown, Uncoded 05/09/20 15:09) HIVES, SWELLING OF THROAT Height: 1.65 m Weight: 103.873 kg Patient Problems: Current Active Problems pelvic disproportion delivered (Acute) delivery delivered (Acute) - VTE Risk Labs: VTE Related Lab Results Hgb 11.0 g/dL (12.2-16.2) L 05/13/20 05:45 Hct 31.9 % (37.0-47.0) L 05/13/20 05:45 Plt Count 141 K/mm3 (142-424) L 05/11/20 21:15 - Prophylaxis VTE Prophylaxis Ordered?: Yes Types of VTE Prophylaxis: IPCS Thigh High Location of Applied Device: Bilateral Lower Extremeties - VTE Diagnosis Confirmed Treatment or plan recommended: Continue Current Treatment
--- NOTE | 2020-05-15 09:40 | P.DS_ITS ---
General - General Admission date:: 05/11/20 Discharge date: 05/15/20 Hospital Course Hospital Course: Presented at 40 wks in active labor Labor course stalled out despite pitocin augmentation heart tracing developed tachycardia and patient was delivered by c section Postop course uneventful Discharged home on POD #3 in stable condition She is tolerating a regular diet, ambulating and voiding without difficulty Asymptomatic with mild anemia Rhogam Administration: Not Indicated Objective Vital signs: Temp Pulse Resp BP Pulse Ox 98.0 F 75 18 90/53 L 98 05/15/20 04:02 05/15/20 04:02 05/15/20 04:02 05/15/20 04:02 05/15/20 04:02 Narrative: CONSTITUTIONAL: no acute distress HEENT: mucous membranes moist PULMONARY: breathing unlabored without audible wheezes CV: no tachycardia or visible JVD; normal LE peripheral pulses ABD: soft, ND; appropriately tender but no rebound/guarding : fundus firm at/below umbilicus SKIN: incision well approximated with no drainage, erythema or induration EXT: 1+ edema LEs NEURO: alert/oriented, no altered mental status PSYCH: appropriate mood and demeanor without anxiety/depression DS: Diagnosis - Discharge Diagnosis (1) pelvic disproportion delivered Status: Acute (2) delivery delivered Status: Acute Discharge Plan - Patient Discharge Instructions ACTIVITY: Continue current activity DIET: regular diet Patient Instructions: DI for Hemorrhage, Pre-eclampsia, DI for , DI for Surgical Site Infection, [facility] Post Discharge Instructions, Preventing the Spread of Coronavirus Discharge Instructions - Follow up Plan Follow up with: Cecelia Eric MD [Primary Care Provider] - 05/26/20 10:00 am Disposition: Home, Self-Group Home Medications: Home Medications Medication Instructions Recorded Confirmed Type prenat.vits,basilio,zsf-bpeo-[id number] 1 tab PO DAILY 09/29/19 05/11/20 History Ketorolac Tromethamine [Toradol 10 mg PO Q6HP PRN #30 tab 05/15/20 Rx 10mg tablet] Oxycodone HCl [OxyIR 5mg tablet] 10 mg PO Q6HP PRN #30 tablet 05/15/20 Rx Prescriptions/Medication Reconciliation: New Oxycodone HCl [OxyIR 5mg tablet] 10 mg PO Q6HP PRN #30 tablet PRN Reason: Severe Pain Ketorolac Tromethamine [Toradol 10mg tablet] 10 mg PO Q6HP PRN #30 tab PRN Reason: Mild To Moderate Pain Continued prenat.vits,basilio,lph-cnuc-iiooy 1 tab PO DAILY - Problem Reconciliation Problems Reviewed?: Yes
--- NOTE | 2020-05-17 10:30 | PC.NURSE ---
Pt to department at this time for staple removal per MD order. Charlene removed, tolerated well by pt. Incision cleaned with 1/2 strength hydrogen peroxide and sterile water, no s/s infection noted. Steri strips applied to incision. Incisional care education provided to pt, v/u. Pt reports that she is out of pain medication, took percocet last at 0100 today and is c/o incisional pain and requesting more medication. Dr. Eric out of the office today. Called Dr. Montoya and notified him of pts complaint. MD reports that he will call medication in for her at clinic pharmacy, pt aware.
== END 2020-05-15 10:10 | disposition home or self-care (01) | DRG 788 ==
LOC: OBOUT 21:15 → OB 21:15
PROVIDERS: Admitting Provider Obstetrics & Gynecology; PCP Obstetrics & Gynecology; Visit Provider Obstetrics & Gynecology
PROC: 10D00Z1 Extraction of Products of Conception, Low, Open Approach (ICD-10-PCS; CPT 59514; principal; 2020-05-12 12:30)
DX: O36.8330 Maternal care for abnormalities of the fetal heart rate or rhythm, third trimester, not applicable or unspecified (principal); Z3A.40 40 weeks gestation of pregnancy; Z37.0 Single live birth
CPT/HCPCS: 59514; 36415; 59025; 80305; 81001; 82800; 82962; 85007; 85014; 85018; 85025; 86328; 86850; 87086; G0463; J2405

== ENCOUNTER → 2020-09-04 21:35 | Outpatient (CLI) | payer OTHER, SELFPAY | PROVIDERS: PCP Emergency Medicine; Visit Provider Emergency Medicine | DX: Z03.818 Encounter for observation for suspected exposure to other biological agents ruled out (principal) | CPT/HCPCS: U0003 ==

== ENCOUNTER → 2021-03-27 13:15 | Outpatient (CLI) | payer OTHER, SELFPAY ==
--- NOTE | 2021-03-27 13:18 | XR_ITS ---
PROCEDURE: XR KNEE RT 4V CLINICAL INDICATION: right knee pain; weightbearing COMPARISON: CR [id number] KNEE-3 VIEWS-RT from 11/09/2014 FINDINGS: No fracture or dislocation. No lytic or blastic change. There is normal mineralization. There is minimal spurring along the medial compartment with very slight decrease in the medial joint space Other findings:There is some thickening of the soft tissues in the suprapatellar region suggesting a small suprapatellar effusion. IMPRESSION: Minimal osteoarthritis with small suprapatellar effusion Dictated by: Parrish Guzman MD 03/27/2021 14:29 Parrish Guzman MD in [place] 03/27/2021 14:29
== END ==
PROVIDERS: PCP Emergency Medicine; Visit Provider Orthopaedic Surgery
DX: M25.561 Pain in right knee (principal)
CPT/HCPCS: 73564

== ENCOUNTER → 2021-03-31 08:13 | Outpatient (CLI) | payer OTHER, SELFPAY ==
--- NOTE | 2021-03-31 08:19 | MR_ITS ---
PROCEDURE INFORMATION: Exam: MR Right Lower Extremity Joint Without Contrast, Knee Exam date and time: 03/31/2021 8:19 AM Age: 26 years old Clinical indication: Right; Patient HX: RT knee pain and swelling, no injury. Symptoms x2-3 years. Prior xray 03-27-21 TECHNIQUE: Imaging protocol: MR of the Right lower extremity joint without contrast. Exam focused on the knee. COMPARISON: CR XR KNEE RT 4V 03/27/2021 1:28 PM FINDINGS: Bones and cartilage: There is minimal subchondral cystic or erosive change at tibial spines with mild underlying marrow edema. No acute fracture. No internal derangement. Small effusion. Joint spaces: No joint effusion. Medial meniscus: See Bones and cartilage finding. Lateral meniscus: Unremarkable. No tear. Anterior cruciate ligament: Unremarkable. No tear. Posterior cruciate ligament: Unremarkable. No tear. Medial capsule and supporting structures: Unremarkable. No tear. Lateral capsule and supporting structures: Unremarkable. No tear. Extensor mechanism of knee: Unremarkable. No tear. Muscles: Unremarkable. Soft tissues: Unremarkable. IMPRESSION: 1. There is minimal subchondral cystic or erosive change at tibial spines with mild underlying marrow edema. 2. No acute fracture. No internal derangement. 3. Small effusion.
== END ==
PROVIDERS: PCP Emergency Medicine; Visit Provider Orthopaedic Surgery
DX: M25.561 Pain in right knee (principal); G89.29 Other chronic pain
CPT/HCPCS: 73721

== ENCOUNTER → 2022-05-13 12:10 | Outpatient (CLI) | payer OTHER, SELFPAY ==
[2022-05-13 12:40] LABS: Basophils % 0.4 % (0.1-2.0); Eosinophils # 0.1 K/mm3 (0.0-0.4); Eosinophils % 1.4 % (0.1-12.0); Hematocrit 41.6 % (37.0-47.0); Hemoglobin 14.7 g/dL (12.2-16.2); Lymphocytes # 1.6 K/mm3 (0.7-4.5); Lymphocytes % 19.6 % (10-50); Mean Corpuscular HGB Conc 35.4 g/dL (31.8-35.4); Mean Corpuscular Hemoglobin 31.5 pg (27.0-31.2); Mean Platelet Volume 9.1 fl (7.4-10.4); Monocytes # 0.3 K/mm3 (0.1-1.0); Monocytes % 3.4 % (1.7-9.3); Neutrophils % 75.2 % (37.0-80.0); Platelet Count 144 K/mm3 (142-424); Red Blood Count 4.68 M/mm3 (4.20-5.40); Red Cell Distribution Width 12.2 % (11.5-17.5); White Blood Count 7.9 K/mm3 (4.8-10.8)
[2022-05-14 09:12] LABS: HIV Screen 4th Generation wRfx Non Reactive (Non Reactive); Rubella Antibodies, IgG 1.39 index (Immune >0.99)
[2022-05-14 10:28] LABS: Hepatitis B Surface Antigen Negative (Negative); Hepatitis C Antibody <0.1 s/co ratio (0.0-0.9)
[2022-05-14 12:09] LABS: Rapid Plasma Reagin Ab Titer Non Reactive (NonRea<1:1)
== END ==
PROVIDERS: PCP Emergency Medicine; Visit Provider Obstetrics & Gynecology
DX: Z34.90 Encounter for supervision of normal pregnancy, unspecified, unspecified trimester (principal)
CPT/HCPCS: 36415; 85025; 86592; 86703; 86762; 86850; 87340; 87380; G0432

== ENCOUNTER → 2022-06-19 20:32 | Outpatient (CLI) | payer OTHER, SELFPAY | END | disposition home or self-care (01) | PROVIDERS: PCP Emergency Medicine; Visit Provider Emergency Medicine | DX: Z20.822 Contact with and (suspected) exposure to COVID-19 (principal) | CPT/HCPCS: C9803; U0003; U0005 ==

== ENCOUNTER → 2022-07-08 13:29 | Outpatient (CLI) | payer OTHER, SELFPAY ==
--- NOTE | 2022-07-08 13:56 | XR_ITS ---
FINAL REPORT CLINICAL HISTORY: SOB COMPARISON: January 06, 2020 FINDINGS: Two views of the chest were obtained. The heart size and pulmonary vascularity are within normal limits. The mediastinum is normal. No acute pulmonary abnormality is identified. There is no pneumothorax. The bony thorax is intact. IMPRESSION: No active cardiopulmonary disease. Reviewed, Interpreted and Dictated by Jamie Jackson III, MD Transcribed by Cheko Paredes Authenticated and [facility]
[2022-07-08 15:44] LABS: C-Reactive Protein 15.4 mg/L (0-4)
[2022-07-11 15:17] LABS: QuantiFERON-TB Gold Plus Negative (Negative)
[2022-07-16 12:14] LABS: D001-IgE D pteronyssinus 0.16 kU/L (Class 0/I); D002-IgE D farinae 0.18 kU/L (Class 0/I); E001-IgE Cat Dander <0.10 kU/L (Class 0); E005-IgE Dog Dander <0.10 kU/L (Class 0); E072-IgE Mouse Urine <0.10 kU/L (Class 0); G002-IgE Bermuda Grass <0.10 kU/L (Class 0); G006-IgE Timothy Grass <0.10 kU/L (Class 0); I006-IgE Cockroach, German <0.10 kU/L (Class 0); Immunoglobulin E, Total 3 IU/mL (6-495); M001-IgE Penicillium chrysogen <0.10 kU/L (Class 0); M002-IgE Cladosporium herbarum <0.10 kU/L (Class 0); M003-IgE Aspergillus fumigatus <0.10 kU/L (Class 0); M006-IgE Alternaria alternata <0.10 kU/L (Class 0); T001-IgE Maple/Box Elder <0.10 kU/L (Class 0); T003-IgE Common Silver Birch <0.10 kU/L (Class 0); T006-IgE Cedar, Mountain <0.10 kU/L (Class 0); T007-IgE Oak, White <0.10 kU/L (Class 0); T008-IgE Elm, American <0.10 kU/L (Class 0); T010-IgE Walnut <0.10 kU/L (Class 0); T011-IgE Maple Leaf Sycamore <0.10 kU/L (Class 0); T014-IgE Cottonwood <0.10 kU/L (Class 0); T015-IgE Ash, White <0.10 kU/L (Class 0); T022-IgE Pecan, Hickory <0.10 kU/L (Class 0); T070-IgE White Mulberry <0.10 kU/L (Class 0); W001-IgE Ragweed, Short <0.10 kU/L (Class 0); W011-IgE Thistle, Russian <0.10 kU/L (Class 0); W014-IgE Pigweed, Common <0.10 kU/L (Class 0); W018-IgE Sheep Sorrel <0.10 kU/L (Class 0)
== END ==
PROVIDERS: PCP Emergency Medicine; Visit Provider Internal Medicine Pulmonary Disease
DX: J30.9 Allergic rhinitis, unspecified (principal); R06.09 Other forms of dyspnea; R06.02 Shortness of breath
CPT/HCPCS: 36415; 71046; 82785; 86003; 86140; 86480

== ENCOUNTER → 2022-07-22 13:04 | Outpatient (CLI) | payer OTHER, SELFPAY ==
--- NOTE | 2022-07-22 13:08 | US_ITS ---
FINAL REPORT TECHNIQUE: Transvaginal ultrasound imaging of the pelvis was obtained. CLINICAL HISTORY: 20 week anatomy scan FINDINGS: There is a single, living intrauterine . Average ultrasound age is 21 weeks 1 day. heart rate is detected at 142 beats per minute. Cervix length is 4.49 cm. BPD: 4.94 cm consistent with 21 weeks 0 days HC: 18.01 cm consistent with 20 weeks 4 days. AC: 16.17 cm consistent with 21 weeks 2 days. FL: 3.60 cm consistent with 21 weeks 3 days. The placenta lies anterior. Fetus is in cephalic position. There is a normal amount of amniotic fluid. movement detected. IMPRESSION: Single, living intrauterine with average ultrasound age of 21 weeks 1 day. Reviewed, Interpreted and Dictated by Adelia Mckenzie MD Transcribed by Abeba Harry Authenticated and [facility]
== END ==
PROVIDERS: PCP Emergency Medicine; Visit Provider Obstetrics & Gynecology
DX: Z34.90 Encounter for supervision of normal pregnancy, unspecified, unspecified trimester (principal); Z3A.20 20 weeks gestation of pregnancy
CPT/HCPCS: 76811

== ENCOUNTER → 2022-10-01 11:12 | Outpatient (CLI) | payer OTHER, SELFPAY ==
[2022-10-01 11:47] LABS: Basophils % 0.3 % (0.1-2.0); Eosinophils # 0.1 K/mm3 (0.0-0.4); Eosinophils % 0.9 % (0.1-12.0); Lymphocytes # 1.7 K/mm3 (0.7-4.5); Lymphocytes % 18.7 % (10-50); Mean Corpuscular HGB Conc 33.3 g/dL (31.8-35.4); Mean Corpuscular Hemoglobin 31.5 pg (27.0-31.2); Mean Corpuscular Volume 94.6 fl (81-99); Mean Platelet Volume 9.4 fl (7.4-10.4); Monocytes # 0.3 K/mm3 (0.1-1.0); Monocytes % 3.6 % (1.7-9.3); Neutrophils # 6.8 K/mm3 (1.8-7.8); Neutrophils % 76.6 % (37.0-80.0); Platelet Count 157 K/mm3 (142-424); Red Blood Count 4.13 M/mm3 (4.20-5.40); White Blood Count 8.9 K/mm3 (4.8-10.8)
[2022-10-01 11:56] LABS: Glucose,Fasting 71 mg/dl (74-100)
[2022-10-01 13:43] LABS: Glucose 1 Hour 157 mg/dL (74-100)
== END ==
PROVIDERS: PCP Emergency Medicine; Visit Provider Obstetrics & Gynecology
DX: Z34.90 Encounter for supervision of normal pregnancy, unspecified, unspecified trimester (principal)
CPT/HCPCS: 36415; 82951; 85025

== ENCOUNTER → 2022-10-01 13:39 | Outpatient (CLI) | payer OTHER, SELFPAY ==
--- NOTE | 2022-10-01 13:42 | US_ITS ---
FINAL REPORT CLINICAL HISTORY: lga COMPARISON: 07/22/2022 FINDINGS: There is a single live intrauterine gestation. Presentation is cephalic. The cervix is closed and measures 3.4 cm. Placenta is anterior. movement is noted. Amniotic fluid index is 9.21 cm which is borderline. Heart rate is detected at 153 beats per minute. Three-vessel cord is noted. MEASUREMENTS: ULTRASOUND AGE: 31 weeks 2 days. GESTATION AGE: 31 weeks 5 days. ESTIMATED WEIGHT: 1769 g GROWTH PERCENTILE: 30 % BPD: 7.69 cm corresponding to 30 weeks 6 days. OFD: 10.13 cm corresponding to 31 weeks 4 days. HC: 28.25 cm corresponding to 31 weeks 0 days. AC: 27.55 cm corresponding to 31 weeks 5 days. FL: 6.06 cm corresponding to 31 weeks 4 days. HC/AC: 1.03 CI: 76% FL/BPD: 79% FL/AC: 22 % IMPRESSION: Single living IUP with an ultrasound age of 31 weeks 2 days. Reviewed, Interpreted and Dictated by Jamie Jackson III, MD Transcribed by Evangelina Lopez Authenticated and [facility]
== END ==
PROVIDERS: PCP Emergency Medicine; Visit Provider Obstetrics & Gynecology
DX: O36.60X0 Maternal care for excessive fetal growth, unspecified trimester, not applicable or unspecified (principal)
CPT/HCPCS: 76816

== ENCOUNTER 2022-11-21 04:40 | Inpatient (IN) | payer OTHER, SELFPAY ==
[2022-11-21] VITALS (11 sets, daily range): BP systolic 114–144; BP diastolic 53–83; PULSE 65–91; RESP 16–18; TEMP 36.2–36.9; O2SAT 95–98; BMI 38.4
[2022-11-21 05:37] LABS: Microscopic, Urine URINE MICROSCOPIC (MICROSCOPIC)
[2022-11-21 05:42] LABS: Appearance,Urine SL CLOUDY (Clear); Bilirubin,Urine Negative (Negative); Blood, Urine TRACE-I (Negative); Color,Urine YELLOW (Yellow); Glucose,Urine (UA) Negative (Negative); Ketones,Urine Negative (Negative); Leukocyte Esterase,Urine 2+ (Negative); Nitrate,Urine Negative (Negative); Protein,Urine TRACE (Negative); Specific Gravity, Urine 1.025 (1.005-1.030); Urobilinogen,Urine 0.2 EU/dl (0.2)
[2022-11-21 05:48] LABS: Basophils # 0.1 K/mm3 (0-0.2); Basophils % 0.5 % (0.1-2.0); Eosinophils # 0.1 K/mm3 (0.0-0.4); Eosinophils % 0.9 % (0.1-12.0); Hematocrit 40.9 % (37.0-47.0); Hemoglobin 13.8 g/dL (12.2-16.2); Lymphocytes # 2.1 K/mm3 (0.7-4.5); Lymphocytes % 19.7 % (10-50); Mean Corpuscular HGB Conc 33.8 g/dL (31.8-35.4); Mean Corpuscular Volume 94.7 fl (81-99); Mean Platelet Volume 10.4 fl (7.4-10.4); Monocytes # 0.5 K/mm3 (0.1-1.0); Monocytes % 4.4 % (1.7-9.3); Neutrophils # 7.9 K/mm3 (1.8-7.8); Neutrophils % 74.6 % (37.0-80.0); Platelet Count 167 K/mm3 (142-424); Red Blood Count 4.31 M/mm3 (4.20-5.40); Red Cell Distribution Width 13.2 % (11.5-17.5); White Blood Count 10.6 K/mm3 (4.8-10.8)
[2022-11-21 05:49] LABS: Coronavirus 19, PCR Not Detected (NotDetected); Influenza A, PCR Not Detected (NotDetected); Influenza B, PCR Not Detected (NotDetected)
[2022-11-21 05:50] LABS: Alanine Aminotransferase 14 U/L (12-78); Albumin Level 3.4 g/dl (3.5-5.0); Albumin/Globulin Ratio 1.1 (1.1-1.8); Alkaline Phosphatase 160 U/L (38-126); Anion Gap 8.7 mEq/L (5-15); Aspartate Amino Transferase 22 U/L (14-36); Bilirubin,Total 0.3 mg/dl (0.2-1.3); Blood Urea Nitrogen 10 mg/dl (7-17); Calcium 8.6 mg/dl (8.4-10.2); Carbon Dioxide 23 mmol/L (22.0-30.0); Chloride 107 mmol/L (98-107); Creatinine Clearance Estimated 282 mL/min (50-200); Estimated Glomerular Filt Rate 149 ml/min (>60); GFR (African American) 180 ML/MIN (>60); Globulin 3.2 g/dL (1.3-3.2); Glucose 74 mg/dl (74-100); Potassium 3.7 mmoL/L (3.5-5.1); Sodium 135 mmol/L (136-145); Total Protein,Serum 6.6 g/dl (6.3-8.2)
[2022-11-21 05:58] LABS: Amphetamine/Metha Screen,Urine Negative ng/ml (<1000)
[2022-11-21 06:00] LABS: Bacteria,Urine 2+ /lpf; Cannabinoid Screen,Urine Negative ng/ml (<50); RBC,Urine Occasional #/hpf (0-3)
[2022-11-21 06:01] LABS: Barbiturates Screen,Urine Negative ng/ml (<200); Benzodiazepines Screen,Urine Negative ng/ml (<200)
[2022-11-21 06:02] LABS: Opiate Screen,Urine Negative ng/ml (<300)
[2022-11-21 06:03] LABS: Cocaine Screen,Urine Negative ng/ml (<300); Methadone Screen,Urine Negative ng/ml (<300)
[2022-11-21 06:04] LABS: Phencyclidine Screen,Urine Negative ng/ml (<25)
--- NOTE | 2022-11-21 06:54 | PC.NURSE ---
Dr. Lindsay paged regarding pre-operative antibiotic orders. Orders verified and read back. Gentamicin 5mg/kg IV x1 dose and Clindamycin 900mg IV. Spoke with Conrado from [facility] to verify dosing on Gentamicin. Faxed orders.
--- NOTE | 2022-11-21 07:23 | EXP.OB.APHP ---
OB - H&P: HPI Antepartum History of Present Illness Chief complaint: Scheduled repeat History of present illness: Ms Lorraine Pennington is a 27 yo at 39w0d who presents to [facility] for scheduled repeat . History of x 1. She has a history of drug abuse and is suboxone maintenance therapy. She has had good care. However, she failed her 1 hr GTT and did not perform her 3 hr GTT. She states she has been checking her BS at home and they have been good . Baby is very active. Denies vaginal bleeding and leakage of fluid. History of Present Criteria for establishing EDC:: LMP confirmed by 1st trimester US care: good care Ultrasounds: normal mid trimester US Medical complications: none Labs Blood type: O (+) positive Rubella: immune RPR/VDRL: nonreactive HBsAG: negative PFSH [facility] Disclaimer: The information contained in this section may have been updated after the patient was seen, as this information can be updated by other users. Medical History (Updated 11/21/22 @ 07:31 by Maureen Lindsay DO) Abnormality of lung on CXR Asthma Bilateral leg pain De Quervain's tenosynovitis, right Dyspnea on exertion Family history of asthma History of drug abuse Marijuana use Maternal obesity affecting , antepartum Maternal tobacco use, antepartum Mild intermittent asthma Pain of right thumb with 39 completed weeks gestation Screening for genetic disease carrier status Size of fetus inconsistent with dates in third trimester Surgical History History of History of tonsillectomy Family History Other COPD (chronic obstructive pulmonary disease) Hyperlipidemia Hypertension Lung cancer Social History Smoking Status: Current every day smoker tobacco type: cigarettes packs per day: 1 second hand exposure: Yes alcohol intake: never substance use type: marijuana and prescription drug current occupational status: employed Travel in the last 8 weeks: None housing: house number of children: 0 current occupation: [employer] caffeine: Yes Review of Systems Review of Systems Review of systems:: pertinent systems reviewed and negative unless documented below Meds Home Medications and Allergies Home Medications Medication Instructions Recorded Confirmed Type buprenorphine 8 mg-naloxone 2 mg 1.5 tab sublingual DAILY SUBSTANCE 02/06/21 11/21/22 History sublingual tablet ABUSE albuterol sulfate 90 mcg/actuation 2 puff inhalation Q4-6H PRN 06/18/22 11/21/22 Rx aerosol inhaler shortness of breath or wheezing #8.5 grams vits no.126-ferrous fum 1 tab PO DAILY PREG 11/21/22 11/21/22 History 28 mg iron-folic acid 800 mcg tablet (Classic ) New Prescriptions to Start Prescriptions: Allergies Allergy/AdvReac Type Severity Reaction Status Date / Time amoxicillin Allergy Mild upseet Verified 11/14/22 14:13 belly; diarrhea strawberry Allergy Unknown HIVES, Verified 11/14/22 14:13 [From [facility] (FOOD/DRUG)] OF THROAT azithromycin Allergy Verified 11/14/22 14:13 codeine Allergy Verified 11/14/22 14:13 From [facility] (FOOD/DRUG) Allergy Unknown HIVES, Uncoded 11/14/22 14:13 SWELLING OF THROAT OB - H&P: Exam Physical Exam Vital signs: Temp Pulse Resp BP Pulse Ox 98.4 F 86 18 131/67 96 11/21/22 05:32 11/21/22 05:32 11/21/22 05:32 11/21/22 05:32 11/21/22 05:32 Constitutional no acute distress Routine HEENT Exam Head: Present normocephalic and atraumatic Eye: Absent conjunctivae pink ENT: Present mucous membranes moist; Absent dentition normal (poor dentition) Routine Neck Exam Present full ROM Routine Respiratory Exam Present CTA bilaterally and normal respi
[2022-11-21 08:09] LABS: Cord Blood PH 7.31 (7.35-7.45)
--- NOTE | 2022-11-21 08:42 | EXP.OP.NOTE ---
Date of procedure: 11/21/22 Pre-op Diagnosis:: 1. with 39 completed weeks gestation 2. Maternal obesity affecting , antepartum 3. Maternal tobacco use, antepartum 4. Mild intermittent asthma 5. History of drug abuse 6. History of 7. Suboxone maintenance treatment complicating , antepartum Post-op Diagnosis:: 1. with 39 completed weeks gestation 2. Maternal obesity affecting , antepartum 3. Maternal tobacco use, antepartum 4. Mild intermittent asthma 5. History of drug abuse 6. History of 7. Suboxone maintenance treatment complicating , antepartum Procedure performed:: Repeat Low Transverse Section Surgeon:: Maureen Lindsay DO Senior Database Programmer(s):: Kavin Montoya MD SCRUM PROJECT MANAGER:: Mahendra Meza Anesthesia: spinal Estimated blood loss (mL): 500 Clinical Note:: Ms Lorraine Pennington is a 27 yo at 39w0d who presents to [facility] for scheduled repeat . History of x 1. She has a history of drug abuse and is suboxone maintenance therapy. She has had good care. However, she failed her 1 hr GTT and did not perform her 3 hr GTT. She states she has been checking her BS at home and they have been good . Baby is very active. Denies vaginal bleeding and leakage of fluid. Operative findings:: 1. Live male baby weighing 6 lb 8 oz, APGARS 8, 9 2. Grossly normal appearing uterus, bilateral fallopian tubes and ovaries Operative note:: The risks, benefits and alternatives of the procedure were reviewed with the patient. Informed consent was obtained. Patient was taken to the operating room were spinal anesthesia was placed without difficulty. The patient received 900 mg Clindamycin and Gentamicin 5 mg/kg preoperatively. Patient was placed in dorsal supine position with a leftward tilt. SCDs in place. Nieves catheter was inserted and draining clear urine prior to the start of the procedure. heart tones were obtained. Patient was then prepped and draped in normal sterile fashion. Allis clamp test was performed to ensure adequate anesthesia. Skin incision was made over prior Pfannenstiel skin incision scar. This was carried through to underlying layer of fascia. Fascia was incised in midline, extended laterally with García scissors. Superior aspect of fascial incision was grasped with two Jan clamps, elevated up, and rectus muscle dissected off bluntly and sharply with García scissors. The retcus muscle was then in the midline and the peritoneum was entered bluntly with a digit. Peritoneal incision was then extended superiorly and inferiorly with good visualization of the bladder. Eliseo retractor was inserted. The lower uterine segment was incised in a transverse fashion. Clear amniotic fluid was noted. Head was delivered without difficulty. Remainder of body was delivered without difficulty. Mouth and nares were bulb suctioned. Spontaneous cry was noted. Delayed cord clamping was performed for 60 seconds. The umbilical cord was clamped and cut. The infant was handed to awaiting pediatric staff in stable condition. Dr. Cortez was present. Apgars were 8(1 min), 9(5 min). Section of the cord was obtained for cord gases. Cord blood was obtained. Gentle traction on the umbilical cord and uterine fundal massage delivered the placenta. Placenta was intact. Uterus was cleared of all clots and debris with a moist laparotomy sponge. Corners of the uterine incision were grasped with Allis clamps. The uterine incision was reapproximated with # 1 Vicryl suture in a running, locked stitch. Second layer of the same stitch was used to imbricate the incision. Excellent hemostasis was noted. Posterior cul-de-sac was cleaned with moist laparotomy sponge. (Uterus returned to the abdomen)Gutters cleared of all clots and debris with a moist laparotomy sponge. Reinspection of the lower uterine segment demonstrated excellent hemostasis. At this point all instruments and sponges w
--- NOTE | 2022-11-21 08:50 | HMH.PHAINT1 ---
Pharmacy Intervention Comments: home medication list verified using list from outpatient pharmacy
--- NOTE | 2022-11-21 08:56 | EXP.ANES.CKL ---
[facility] Disclaimer: The information contained in this section may have been updated after the patient was seen, as this information can be updated by other users. Medical History (Updated 11/21/22 @ 07:31 by Maureen Lindsay DO) Abnormality of lung on CXR Asthma Bilateral leg pain De Quervain's tenosynovitis, right Dyspnea on exertion Family history of asthma History of drug abuse Marijuana use Maternal obesity affecting , antepartum Maternal tobacco use, antepartum Mild intermittent asthma Pain of right thumb with 39 completed weeks gestation Screening for genetic disease carrier status Size of fetus inconsistent with dates in third trimester Surgical History History of History of tonsillectomy Family History Other COPD (chronic obstructive pulmonary disease) Hyperlipidemia Hypertension Lung cancer Social History Smoking Status: Current every day smoker tobacco type: cigarettes packs per day: 1 second hand exposure: Yes alcohol intake: never substance use type: marijuana and prescription drug current occupational status: employed Travel in the last 8 weeks: None housing: house number of children: 0 current occupation: [employer] caffeine: Yes [facility] Anesthesia Checklist Patient Identification Patient Identification: Arm Band Structural Data Admitted From: Home Planned Operative Procedure/s: Repeat C/S Consent for Planned Operative Procedure(s) Verified: Yes Verified Documents: Surgical Consent and History and Physical NPO Status Verified Time NPO: 00:00 Additional verifications Anesthesia Reactions: No Hx Blood Transfusions: No Blood Transfusion Reaction: No Airway Assessment C-Spine Mobility Assessed: Yes TMJ Mobility Assessed: Yes Neurological Assessment Level of Consciousness: Awake and Alert Anesthesia Plan Anesthesia Risk discussed: Yes Anesthesia Plan: Verified ASA Class: II Anesthesia Type: Spinal (with Bilateral TAP Block)
--- NOTE | 2022-11-21 08:57 | EXP.ANES.I ---
[facility] Anesthesia Record Part I Anesthesia Record I Intake, IV Amount: 2,000 Estimated blood loss (mL): 500 Urine output (mL): 150 Blood Products used (#): none Blood Pressure: 115/60 SaO2: 95 Pulse Rate: 81 Respiratory Rate: 16 Temperature: 97.2 F Patient is:: Drowsy and Stable Stable to PACU at:: 08:50
--- NOTE | 2022-11-21 10:06 | SUR.OPER ---
Viable male born at 0800
--- NOTE | 2022-11-21 10:24 | EXP.ANES.II ---
[facility] Anesthesia Record Part II Anesthesia Record Part II Discharge Time: 09:20 Destination: Obstetric PACU nurse assessment reviewed?: Yes Patient Condition:: Good Anesthesia Complications:: None Swallowing reflex intact?: Yes Cyanosis?: No Blood Pressure: 129/80 Pulse Rate: 75 Temperature: 97.2 F Mental Status: Alert & Oriented Pain level:: 0 Nausea and/or vomitting:: None Intake, IV Amount: 0
[2022-11-22 00:07] VITALS: BP 117/56; PULSE 84; RESP 17; TEMP 36.8; O2SAT 97
[2022-11-22 03:30] VITALS: BP 104/56; PULSE 71; RESP 17; TEMP 36.7; O2SAT 97
[2022-11-22 06:19] LABS: Basophils % 0.4 % (0.1-2.0); Eosinophils # 0.1 K/mm3 (0.0-0.4); Hemoglobin 12.1 g/dL (12.2-16.2); Lymphocytes # 1.7 K/mm3 (0.7-4.5); Lymphocytes % 20.5 % (10-50); Mean Corpuscular HGB Conc 33.7 g/dL (31.8-35.4); Mean Corpuscular Hemoglobin 31.9 pg (27.0-31.2); Mean Corpuscular Volume 94.8 fl (81-99); Mean Platelet Volume 10.4 fl (7.4-10.4); Monocytes # 0.4 K/mm3 (0.1-1.0); Monocytes % 4.9 % (1.7-9.3); Neutrophils % 73.2 % (37.0-80.0); Platelet Count 124 K/mm3 (142-424); Red Cell Distribution Width 13.4 % (11.5-17.5); White Blood Count 8.2 K/mm3 (4.8-10.8)
[2022-11-22 08:30] VITALS: BP 124/69; PULSE 81; RESP 16; TEMP 36.6; O2SAT 95
--- NOTE | 2022-11-22 09:16 | SW/DCPLANNER ---
Addendum entered by Brenna Maurer 11/27/22 08:30: Infant cord screen is NEGATIVE. Original Note: I received a consult for this patient regarding: suboxone use in . Patient is established with [facility] in [place] and has been established for past two years. Patient delivered male (Leigh Banks) on 11/21/22. Infant's father (Andrew Banks 01/15/92) was present at the time of my visit. Patient, infant and other child (Felisha Banks 05/12/20) will reside at [address] [place] [address] in [place] [address]. Patient's contact number is [phone]. Patient stated that she has not had any past Social Service involvement. Patient is established with [facility] and is not interested in HANDS. Patient stated that she has the following items at home: crib, carseat, clothing, diapers and will be bottle/breast feeding. Patient is expected to discharge home tomorrow 11/23/22. Patient's nurse (Yanira) stated that patient is appropriate and is scoring a 3 at this time. Patient has no further needs. I have directed OB nursing staff to please call me if there are any changes.
--- NOTE | 2022-11-22 09:20 | EXP.ACUTE.PN ---
Subjective *Date: 11/22/22 *Time: 09:20 Interval history: POD # 1 s/p RLTCS Doing well. Standing at bassinet with baby this morning. Pain is controlled. Lochia is appropriate. She is breast and bottle feeding. She is voiding without difficulty and passing flatus. Tolerating regular diet. Denies fever/chills, chest pain and shortness of breath. Admits to mild headache that she thinks is from lack of sleep. Denies dizziness and vision changes. Denies swelling. Medical Exam Vital signs and Labs for Last 24 Hours: Vital Signs Temp Pulse Pulse Resp BP BP Pulse Ox 11/22/22 03:30 98.1 F 71 17 104/56 L 97 11/22/22 00:07 98.2 F 84 17 117/56 L 97 11/21/22 19:47 98.1 F 65 18 114/53 L 97 11/21/22 16:20 97.8 F 68 16 114/56 L 96 11/21/22 12:20 98.2 F 91 H 16 118/83 97 11/21/22 09:35 97.9 F 80 18 116/76 98 11/21/22 10:26 97.2 F L 75 129/80 Laboratory Results - last 24 hr 11/22/22 06:00: WBC 8.2, RBC 3.80 L, Hgb 12.1 L, Hct 36.0 L, MCV 94.8, MCH 31.9 H, MCHC 33.7, RDW 13.4, Plt Count 124 L D, MPV 10.4, Neut % (Auto) 73.2, Lymph % (Auto) 20.5, Denali % (Auto) 4.9, Eos % (Auto) 1.0, Baso % (Auto) 0.4, Neut # (Auto) 6.0, Lymph # (Auto) 1.7, Denali # (Auto) 0.4, Eos # (Auto) 0.1, Baso # (Auto) 0.0 I & O for Labs for Last 24 Hours: Intake & Output 11/19/22 11/20/22 11/21/22 11/22/22 23:59 23:59 23:59 23:59 Intake Total 1999 Balance 1999 Weight 231 lb Microbiology Reports for the Last 24 Hours: Microbiology 11/21/22 04:55 Urine,Clean Catch Urine Culture - Preliminary NO GROWTH AFTER 24 HOURS Head: Present atraumatic and normocephalic ENT: Present mucous membranes moist Neck: Present normal inspection and full ROM Respiratory: Present CTA bilaterally and normal respiratory effort Cardiac: Present Reg Rate and Rhythm GI: Present soft; Absent tenderness Comments:: Uterine fundus firm and below umbilicus; incision clean/dry/intact with steri strips over top Rectal (female): Present deferred (female): Present deferred Extremities: Present full ROM and edema (trace lower extremity edema); Absent calf tenderness Neuro: Present Grossly Intact, alert, awake, oriented x 3 and moves all extremities Assessment and Plan *Assessment and plan (1) with 39 completed weeks gestation: Status: Acute Category: Medical Code(s): Z3A.39 - 39 weeks gestation of (2) S/P : Status: Acute Category: Surgical Code(s): Z98.891 - History of uterine scar from previous surgery (3) History of : Status: Acute Category: Surgical Code(s): Z98.891 - History of uterine scar from previous surgery (4) Maternal obesity affecting , antepartum: Status: Acute Category: Medical Code(s): O99.210 - Obesity complicating , unspecified trimester (5) Maternal tobacco use, antepartum: Status: Acute Category: Medical Code(s): O99.330 - Smoking (tobacco) complicating , unspecified trimester (6) Suboxone maintenance treatment complicating , antepartum: Status: Acute Category: Medical Code(s): O99.320 - Drug use complicating , unspecified trimester; F11.20 - Opioid dependence, uncomplicated (7) Asthma: Status: Chronic Category: Medical Code(s): J45.909 - Unspecified asthma, uncomplicated (8) Marijuana use: Status: Acute Category: Social Hx Code(s): F12.90 - Cannabis use, unspecified, uncomplicated Plan Continue routine care Encouraged increased ambulation Plan d/c home tomorrow
[2022-11-22 16:34] VITALS: BP 119/59; PULSE 70; RESP 16; TEMP 36.7; O2SAT 96
[2022-11-22 20:16] VITALS: BP 119/55; PULSE 73; RESP 18; TEMP 36.7; O2SAT 97
[2022-11-23 09:50] VITALS: BP 132/80; PULSE 72; RESP 16; TEMP 36.8; O2SAT 97
--- NOTE | 2022-11-23 11:55 | EXP.DC.SUM ---
General Admission date:: 11/21/22 Discharge date: 11/23/22 HPI HPI HPI: POD # 2 s/p RLTCS Feeling well. Pain is controlled. She is breast and bottle feeding. Light lochia. Voiding without difficulty and passing flatus. Tolerating regular diet. No chest pain or shortness of breath. Admits to a little wheezing which her inhaler resolves. She is a smoker and has asthma. She would like to try to quit smoking completely. Denies fever/chills. Admits to headache last night that resolved with Ibuprofen. She thinks headaches are from lack of sleep. Denies dizziness/lightheadedness and vision changes. Admits lower extremity swelling is better. Hospital Course Hospital Course Hospital Course: Ms Lorraine Pennington is a 27 yo at 39w0d who presents to [facility] for scheduled repeat . History of x 1. She has a history of drug abuse and is suboxone maintenance therapy. She has had good care. However, she failed her 1 hr GTT and did not perform her 3 hr GTT. She states she has been checking her BS at home and they have been good . She underwent repeat low transverse section on 11/21/22. She delivered a little boy, Padyd Yancey, weighing 6 lb 8 oz with APGARS 8, 9. EBL 500 mL. POD # 1 she was doing well. Breast and formula feeding. Pain controlled. She was tolerating regular diet. Voiding without difficulty and passing flatus. No fever/chills, chest pain or shortness of breath. Vital signs were stable. Heart was regular rhythm. Lungs were clear to ascultation. Abdomen was soft, nontender. She had headache relieved by Ibuprofen and rest. POD # 2 she was doing well. Breast and formula feeding. Pain controlled. Light lochia. She was tolerating regular diet. Voiding without difficulty and passing flatus. No fever/chills, chest pain or shortness of breath. Vital signs were stable. Heart was regular rhythm. Lungs were clear to ascultation. Abdomen was soft, nontender. Extremities with +1 bilateral lower extremity edema. No calf tenderness to palpation. Normal hospital course. 11/21/22: Hgb 13.8, Hct 40.9 11/22/22: Hgb 12.1, Hct 36.0 Exam Data for Last 24 hours Vital signs and Labs for Last 24 Hours: Temp Pulse Resp BP Pulse Ox 98.3 F 72 16 132/80 97 11/23/22 09:50 11/23/22 09:50 11/23/22 09:50 11/23/22 09:50 11/23/22 09:50 I & O for Last 24 hours: Intake & Output 11/20/22 11/21/22 11/22/22 11/23/22 23:59 23:59 23:59 23:59 Intake Total 1999 Balance 1999 Weight 231 lb Microbiology Reports for the Last 24 Hours: Microbiology 11/21/22 04:55 Urine,Clean Catch Urine Culture - Final NO GROWTH AFTER 48 HOURS Constitutional Constitutional: no acute distress and obese *Routine HEENT Exam Head: Present normocephalic and atraumatic Eye: Absent conjunctivae pink ENT: Present mucous membranes moist; Absent dentition normal *Routine Neck Exam Neck: Present full ROM *Routine Respiratory Exam Respiratory: Present CTA bilaterally and normal respiratory effort *Routine Cardiovascular Exam Cardiovascular: Present RRR *Routine Abdominal Exam Abdominal: Present soft and normoactive bowel sounds; Absent tenderness or distended Comments: Uterine fundus firm and below umbilicus. Incision clean/dry/intact with steri strips in place *Routine Rectal Exam Patient deferred: visual exam *Routine Exam Patient deferred: external exam *Routine Extremities Exam Extremities: Present edema (+1 bilateral lower extremity edema) and full ROM; Absent calf tenderness *Routine Neurological Exam Neurological: Present alert, oriented X3 and moving all extremities Routine Psychiatric Exam Psychiatric: Present normal affect and cooperative DS: Diagnosis Discharge Diagnosis (1) with 39 completed weeks gestation: Status: Acute (2) S/P : Status: Acute (3) History of : Status: Acute (4) Maternal obesity affe
[2022-12-06 21:12] LABS: Buprenorphine, Urine POSITIVE
== END 2022-11-23 13:10 | disposition home or self-care (01) | DRG 788 ==
PROVIDERS: Admitting Provider Obstetrics & Gynecology; PCP Emergency Medicine; Visit Provider Obstetrics & Gynecology
PROC: 10D00Z1 Extraction of Products of Conception, Low, Open Approach (ICD-10-PCS; principal; 2022-11-21 07:30)
DX: O34.211 Maternal care for low transverse scar from previous cesarean delivery (principal); O99.320 Drug use complicating pregnancy, unspecified trimester; F12.90 Cannabis use, unspecified, uncomplicated; N85.8 Other specified noninflammatory disorders of uterus; O99.334 Smoking (tobacco) complicating childbirth; Z37.0 Single live birth; O99.214 Obesity complicating childbirth; F17.210 Nicotine dependence, cigarettes, uncomplicated
CPT/HCPCS: 59514; 36415; 59025; 80053; 80305; 80307; 81001; 82800; 85025; 86850; 87086; 94761; C9290; C9803; G0283; J0574; J2405; U0003; U0005

== ENCOUNTER 2023-10-29 08:51 | Outpatient (CLI) | payer OTHER, SELFPAY ==
[2023-10-31 23:27] LABS: Neisseria gonorrhoeae, NAA Negative (Negative)
== END 2023-10-29 23:59 ==
LOC: LAB.DROPOF 10-30 08:52
PROVIDERS: PCP Emergency Medicine; Visit Provider Obstetrics & Gynecology
DX: Z34.91 Encounter for supervision of normal pregnancy, unspecified, first trimester (principal); Z3A.11 11 weeks gestation of pregnancy
CPT/HCPCS: 87086; 87491; 87591

== ENCOUNTER 2023-10-30 10:18 | Outpatient (CLI) | payer OTHER, SELFPAY | END 2023-10-30 23:59 | LOC: LAB.DROPOF 11-07 10:18 | PROVIDERS: PCP Obstetrics & Gynecology; Visit Provider Obstetrics & Gynecology | DX: Z34.91 Encounter for supervision of normal pregnancy, unspecified, first trimester (principal); Z3A.11 11 weeks gestation of pregnancy | CPT/HCPCS: 87086 ==

== ENCOUNTER 2023-11-13 16:18 | Outpatient (CLI) | payer OTHER, SELFPAY ==
[2023-11-13 16:55] LABS: Basophils % 0.3 % (0.1-2.0); Eosinophils # 0.1 K/mm3 (0.0-0.4); Eosinophils % 0.9 % (0.1-12.0); Hematocrit 41.7 % (37.0-47.0); Hemoglobin 13.9 g/dL (12.2-16.2); Lymphocytes # 1.2 K/mm3 (0.7-4.5); Mean Corpuscular HGB Conc 33.4 g/dL (31.8-35.4); Mean Corpuscular Hemoglobin 29.9 pg (27.0-31.2); Mean Corpuscular Volume 89.7 fl (81-99); Mean Platelet Volume 9.4 fl (7.4-10.4); Monocytes # 0.2 K/mm3 (0.1-1.0); Monocytes % 3.5 % (1.7-9.3); Neutrophils # 5.5 K/mm3 (1.8-7.8); Neutrophils % 78.4 % (37.0-80.0); Platelet Count 136 K/mm3 (142-424); Red Blood Count 4.65 M/mm3 (4.20-5.40); Red Cell Distribution Width 13.1 % (11.5-17.5)
[2023-11-14 06:03] LABS: Rubella Antibodies, IgG 1.27 index (Immune >0.99)
[2023-11-14 11:19] LABS: Rapid Plasma Reagin Ab Titer Non Reactive titer (NonRea<1:1)
[2023-11-17 09:14] LABS: HIV Screen 4th Generation wRfx Non Reactive; Hepatitis B Surface Antigen Negative; Hepatitis C Antibody Non Reactive
== END 2023-11-13 23:59 ==
PROVIDERS: PCP Nurse Practitioner Family; Visit Provider Obstetrics & Gynecology
DX: Z34.91 Encounter for supervision of normal pregnancy, unspecified, first trimester (principal); Z3A.13 13 weeks gestation of pregnancy
CPT/HCPCS: 36415; 85025; 86593; 86703; 86762; 86850; 87340; 87380; G0432

== ENCOUNTER 2023-12-31 12:51 | Outpatient (CLI) | payer OTHER, SELFPAY ==
--- NOTE | 2023-12-31 12:52 | US_ITS ---
PROCEDURE: US OB /MATERNAL DETAIL CLINICAL INDICATION: 20 week anatomy scan COMPARISON: No exams were available for comparison FINDINGS: Transabdominal sonographic images of the pelvis were obtained. From her established due date she is 20 weeks 0 days. Single viable intrauterine gestation. Breech position. Placenta: Posteriorplacenta grade 1. There is an average amount of fluid. The cervix appears satisfactory. Closed and measuring 3.6 cm in length. Complete survey performed and was unremarkable on the submitted images as in PACS. No discrete anomalies identified on survey imaging by technologist. Active fetus. Three-vessel cord with satisfactory umbilical cord insertion. 4- chamber heart noted. Situs, aortic arch, LVOT, RVOT, three-vessel view appear normal. Survey of brain & ventricles Unremarkable. Cerebellum, thalamus, choroid plexus, cisterna magna appear normal. Face and neck survey unremarkable. Profile, nasion, lips and nose appeared normal. Diaphragm and chest views unremarkable. Abdomen: Both kidneys noted and unremarkable. Stomach and bladder noted and satisfactory. Spine: Survey of the spine satisfactory with no anomalies identified nor imaged. Cervical, thoracic, lower spine appear normal. Both arms and legs noted. Amniotic Fluid: Adequate. Measurements: Average ultrasound age 19weeks 2days. Estimated due date by ultrasound age 0705/24/2024. Estimated weight 280g BPD = 19weeks 0 days HC = 19weeks 0 days AC = 19weeks 3days FL = 19weeks 2days Growth Percentile= 11 Heart Rate = 150bpm Cerebellum = 19weeks 2days Humerus = 19weeks 1day HC/AC is 1.16 FL/BPD is 0.7 FL/AC is 0.21 IMPRESSION: 1. Viable fetus in the breech presentation with a posterior placenta grade 1. 2. The fluid is within normal limits. 3. Anatomical scan appears normal. 4. biometry is consistent with the dates. Dictated by: Kavin Montoya MD 12/31/2023 17:36 Kavin Montoya MD in [place] 12/31/2023 17:36
== END 2023-12-31 23:59 ==
LOC: RAD 12:52
PROVIDERS: PCP Internal Medicine; Visit Provider Obstetrics & Gynecology
DX: O99.212 Obesity complicating pregnancy, second trimester (principal); O99.332 Smoking (tobacco) complicating pregnancy, second trimester; O99.322 Drug use complicating pregnancy, second trimester; Z3A.20 20 weeks gestation of pregnancy; F11.20 Opioid dependence, uncomplicated
CPT/HCPCS: 76811

== ENCOUNTER 2024-01-02 13:09 | Outpatient (CLI) | payer OTHER, SELFPAY ==
[2024-01-02 13:45] VITALS: BP 100/54; PULSE 98; RESP 18; TEMP 36.8; O2SAT 99; BMI 35.6
[2024-01-02 14:10] LABS: Microscopic, Urine URINE MICROSCOPIC (MICROSCOPIC)
[2024-01-02 14:21] LABS: Appearance,Urine SL CLOUDY (Clear); Bilirubin,Urine Negative (Negative); Blood, Urine Negative (Negative); Color,Urine YELLOW (Yellow); Glucose,Urine (UA) Negative (Negative); Ketones,Urine Negative (Negative); Leukocyte Esterase,Urine TRACE (Negative); Nitrate,Urine Negative (Negative); PH,Urine 6.5 (5.0-8.5); Protein,Urine Negative (Negative); Urobilinogen,Urine 0.2 EU/dl (0.2)
[2024-01-02 14:37] LABS: Bacteria,Urine 4+ /lpf; Squamous Epithelial Cell,Urine Occasional #/hpf (0-5)
[2024-01-02 14:44] LABS: Barbiturates Screen,Urine Negative ng/ml (<200)
[2024-01-02 14:45] LABS: Amphetamine/Metha Screen,Urine Negative ng/ml (<1000); Benzodiazepines Screen,Urine Negative ng/ml (<200)
[2024-01-02 14:46] LABS: Cannabinoid Screen,Urine Negative ng/ml (<50)
[2024-01-02 14:47] LABS: Cocaine Screen,Urine Negative ng/ml (<300)
[2024-01-02 14:48] LABS: Methadone Screen,Urine Negative ng/ml (<300); Opiate Screen,Urine Negative ng/ml (<300)
[2024-01-02 14:49] LABS: Phencyclidine Screen,Urine Negative ng/ml (<25)
== END 2024-01-02 15:00 | disposition home or self-care (01) ==
LOC: OBOUT 13:10 → OB 13:11
PROVIDERS: PCP Internal Medicine; Visit Provider Obstetrics & Gynecology
DX: K59.00 Constipation, unspecified (principal); R10.10 Upper abdominal pain, unspecified; O26.892 Other specified pregnancy related conditions, second trimester; Z3A.20 20 weeks gestation of pregnancy
CPT/HCPCS: 80307; 81001; 87086; G0463

== ENCOUNTER 2024-02-25 13:02 | Outpatient (CLI) | payer OTHER, SELFPAY ==
--- NOTE | 2024-02-25 13:08 | US_ITS ---
PROCEDURE: US OB FOLLOW UP CLINICAL INDICATION: Viable fetus in the breech presentation COMPARISON: US US OB /MATERNAL DETAIL from 12/31/2023 FINDINGS: Transabdominal sonographic images of the pelvis were obtained. The following parameters are obtained: From her established due date she is 28weeks 0 days Viable fetus in the cephalic presentation with a posterior placenta grade 1. The cervix measures 3.7 cm. heart rate: 130bpm bpm. BPD: 27weeks 3days, 19 percentile HC: 28weeks 0 days, 17 percentile AC: 27weeks 5days, 32 percentile FL: 27weeks 3days, 19 percentile HC/AC: 1.1 FL/BPD: 0.75 FL/AC: 0.22 Growth percentile: 23 percent Amniotic fluid index: Normal No obvious anomalies evident. profile seen, stomach, bladder, kidneys, three-vessel cord, four chamber heart appear normal. IMPRESSION: 1. Viable fetus in the cephalic presentation with posterior placenta grade 1. 2. The fluid is within normal limits. 3. There has been good interval growth with fetus currently 23rd percentile. 4. Limited anatomical scan appears normal. Dictated by: Kavin Montoya MD 02/26/2024 08:18 Kavin Montoya MD in OV 02/26/2024 08:18
== END 2024-02-25 23:59 | disposition home or self-care (01) ==
LOC: RAD 13:02
PROVIDERS: PCP Internal Medicine; Visit Provider Obstetrics & Gynecology
DX: O32.1XX0 Maternal care for breech presentation, not applicable or unspecified (principal); O99.330 Smoking (tobacco) complicating pregnancy, unspecified trimester; O99.320 Drug use complicating pregnancy, unspecified trimester; F11.20 Opioid dependence, uncomplicated; Z3A.28 28 weeks gestation of pregnancy
CPT/HCPCS: 76816

== ENCOUNTER 2024-05-12 04:58 | Inpatient (IN) | payer OTHER, SELFPAY ==
[2024-05-12] VITALS (8 sets, daily range): BP systolic 101–124; BP diastolic 56–76; PULSE 58–83; RESP 14–20; TEMP 36.4–36.8; O2SAT 95–99; BMI 34.7; BMI 34.8
[2024-05-12] MEDS: LACTATED RINGERS 1000ML 2,000 ML 999 ML IV ×2 (05:30→06:05)
[2024-05-12 05:44] LABS: Microscopic, Urine URINE MICROSCOPIC (MICROSCOPIC)
[2024-05-12 05:46] LABS: Appearance,Urine CLEAR (Clear); Blood, Urine Negative (Negative); Color,Urine DARK YELLOW (Yellow); Glucose,Urine (UA) Negative (Negative); Ketones,Urine TRACE (Negative); Leukocyte Esterase,Urine 1+ (Negative); Nitrate,Urine Negative (Negative); Protein,Urine 1+ (Negative); Specific Gravity, Urine >= 1.030 (1.005-1.030); Urobilinogen,Urine >=8.0 EU/dl (0.2)
[2024-05-12 05:50] LABS: Bilirubin,Urine Negative (Negative)
[2024-05-12 05:57] LABS: Basophils % 0.5 % (0.1-2.0); Eosinophils # 0.1 K/mm3 (0.0-0.4); Eosinophils % 0.6 % (0.1-12.0); Hematocrit 40.3 % (37.0-47.0); Hemoglobin 13.5 g/dL (12.2-16.2); Lymphocytes # 2.1 K/mm3 (0.7-4.5); Lymphocytes % 24.8 % (10-50); Mean Corpuscular HGB Conc 33.5 g/dL (31.8-35.4); Mean Corpuscular Hemoglobin 31.2 pg (27.0-31.2); Mean Corpuscular Volume 93.2 fl (81-99); Mean Platelet Volume 10.3 fl (7.4-10.4); Monocytes # 0.4 K/mm3 (0.1-1.0); Monocytes % 4.6 % (1.7-9.3); Neutrophils # 5.9 K/mm3 (1.8-7.8); Neutrophils % 69.6 % (37.0-80.0); Platelet Count 177 K/mm3 (142-424); Red Blood Count 4.33 M/mm3 (4.20-5.40); Red Cell Distribution Width 13.5 % (11.5-17.5); White Blood Count 8.5 K/mm3 (4.8-10.8)
[2024-05-12 05:59] LABS: Amphetamine/Metha Screen,Urine Negative ng/ml (<1000); Benzodiazepines Screen,Urine Negative ng/ml (<200)
[2024-05-12 06:00] LABS: Barbiturates Screen,Urine Negative ng/ml (<200); Cannabinoid Screen,Urine Negative ng/ml (<50)
[2024-05-12 06:00] LABS: Anion Gap 10.6 mEq/L (5-15); Blood Urea Nitrogen 7 mg/dl (7-17); Calcium 8.8 mg/dl (8.4-10.2); Carbon Dioxide 20 mmol/L (22.0-30.0); Chloride 107 mmol/L (98-107); Creatinine Clearance Estimated 209 mL/min (50-200); Estimated Glomerular Filt Rate 119 ml/min (>60); GFR (African American) 144 ML/MIN (>60); Glucose 75 mg/dl (74-100); Potassium 3.6 mmoL/L (3.5-5.1); Sodium 134 mmol/L (136-145)
[2024-05-12 06:01] LABS: Cocaine Screen,Urine Negative ng/ml (<300)
[2024-05-12 06:02] LABS: Methadone Screen,Urine Negative ng/ml (<300); Opiate Screen,Urine Negative ng/ml (<300)
[2024-05-12 06:03] LABS: Phencyclidine Screen,Urine Negative ng/ml (<25)
[2024-05-12 06:08] LABS: Bacteria,Urine 2+ /lpf; Mucus,Urine 1+ /lpf
[2024-05-12] MEDS: CEFAZOLIN SODIUM 2 GM in 0.9 % SODIUM CHLORIDE 100 ML IV ×3 (07:25→23:10)
--- NOTE | 2024-05-12 07:26 | P.HP_ITS ---
OB - H&P: HPI Antepartum History of Present Illness Chief complaint: Scheduled repeat History of present illness: Ms Lorraine Okeefe is a 29 yo at 39w0d who presents to [facility] for scheduled repeat . History of x 2. complicated by tobacco use, maernal obesity and subutex maintenance therapy. She has had limited care. She refused to complete glucose testing. Baby is active. No leakage of fluid or vaginal bleeding. History of Present Criteria for establishing EDC:: LMP confirmed by 1st trimester US care: limited care Ultrasounds: normal mid trimester US Obstetrical complications: previous Labs Blood type: O (+) positive Rubella: immune RPR/VDRL: nonreactive HBsAG: negative PFSH [facility] Disclaimer: The information contained in this section may have been updated after the patient was seen, as this information can be updated by other users. Medical History complicated by subutex maintenance, antepartum Maternal tobacco use, antepartum Maternal obesity affecting , antepartum Mild intermittent asthma Dyspnea on exertion Abnormality of lung on CXR Family history of asthma Asthma De Quervain's tenosynovitis, right Pain of right thumb Bilateral leg pain Screening for genetic disease carrier status 05/27/22 - Horizon carrier screen negative for 14 conditions tested include CF, Fragile X and SMA Marijuana use History of drug abuse taking Subutex Surgical History History of tonsillectomy History of x 2 Family History Other COPD (chronic obstructive pulmonary disease) Hyperlipidemia Hypertension Lung cancer Social History Smoking Status: Current every day smoker tobacco type: cigarettes packs per day: 1 second hand exposure: Yes alcohol intake: never substance use type: prescription drug current occupational status: employed Travel in the last 8 weeks: None housing: house number of children: 0 current occupation: [employer] caffeine: Yes Review of Systems Review of Systems Review of systems:: pertinent systems reviewed and negative unless documented below Meds Home Medications and Allergies Home Medications Medication Instructions Recorded Confirmed Type albuterol sulfate 90 mcg/actuation 2 puff inhalation Q4-6H PRN 06/18/22 05/12/24 Rx aerosol inhaler shortness of breath or wheezing #8.5 grams buprenorphine HCl 8 mg sublingual 8 mg sublingual DAILY 10/29/23 05/12/24 History tablet vits no.126-ferrous fum 1 tab PO DAILY #30 tabs 10/29/23 05/12/24 Rx 28 mg iron-folic acid 800 mcg tablet (Classic ) ondansetron 4 mg disintegrating 4 mg PO Q6H PRN nausea and 11/26/23 05/12/24 Rx tablet vomiting #30 tabs ferrous sulfate 325 mg (65 mg 325 mg PO DAILY #30 tabs 12/31/23 05/12/24 Rx iron) tablet New Prescriptions to Start Prescriptions: Allergies Allergy/AdvReac Type Severity Reaction Status Date / Time amoxicillin Allergy Mild upseet Verified 05/07/24 09:59 belly; diarrhea prednisone Allergy Mild Verified 05/12/24 05:45 strawberry Allergy Unknown HIVES, Verified 05/07/24 09:59 [From [facility] (FOOD/DRUG)] OF THROAT azithromycin Allergy Verified 05/07/24 09:59 codeine Allergy Verified 05/07/24 09:59 From [facility] (FOOD/DRUG) Allergy Unknown HIVES, Uncoded 05/07/24 09:59 SWELLING OF THROAT OB - H&P: Exam Physical Exam Vital signs: Temp Pulse Resp BP Pulse Ox O2 Del Method 98.3 F 83 18 118/68 98 Room Air 05/12/24 05:39 05/12/24 05:39 05/12/24 05:39 05/12/24 05:39 05/12/24 05:39 05/12/24 05:39 Constitutional no acute distress and cooperative Routine HEENT Exam Head: Present normocephalic and atraumatic Eye: Absent conjunctivae pink ENT: Present mucous membranes moist Routine Neck Exam Present full ROM Routine Respiratory Exam Present CTA bilaterally and normal respiratory effort Routine Cardiovascular Exam Present RRR Routine Abdominal Exam Present soft (Gravid); Absent tenderness Routine Rectal Exam Patient deferred: visual exam Routine Exam External: Present normal urethra appearance; Absent erythema, tenderness, lesions, lacerations or vulvar erythema Routine Extremities Exam Present edema (+1 bilateral lower extremity edema) and full ROM; Absent calf ten derness Routine Neurological Exam Present alert, moving all extremities and normal speech Routine Psychiatric Exam Present normal affect and cooperative OB - Results Labs Labs: Short CBC 05/12/24 Range/Units 05:30 WBC 8.5 (4.8-10.8) K/mm3 Hgb 13.5 (12.2-16.2) g/dL Hct 40.3 (37.0-47.0) % Plt Count 177 (142-424) K/mm3 BMP 05/12/24 05:30 Sodium 134 L Potassium 3.6 Chloride 107 Carbon Dioxide 20 L BUN 7 Creatinine 0.60 Glucose 75 Calcium 8.8 Urine 05/12/24 Range/Units 05:08 Urine Color Dark yellow (Yellow) Urine Appearance Clear (Clear) Urine pH 6.0 (5.0-8.5) Ur Specific Erwin >= 1.030 (1.005-1.030) Urine Protein 1+ (Negative) Urine Glucose (UA) Negative (Negative) OB - A/P Antepartum (1) Maternal obesity affecting , antepartum: Status: Acute (2) Maternal tobacco use, antepartum: Status: Acute (3) complicated by subutex maintenance, antepartum: Status: Acute (4) Mild intermittent asthma: Status: Chronic (5) History of : Problem details: x 2 Status: Acute Additional Plan Additional Information:: Admit to [facility] for scheduled repeat Reviewed risks, benefits, alternatives, expectations and possible complications of surgery. All questions addressed and answered. She voiced understanding of risks and possible complications. Consent form signed. Proceed with scheduled
[2024-05-12 08:00] LABS: Cord Blood PH 7.37 (7.35-7.45)
--- NOTE | 2024-05-12 08:29 | HMH.PHAINT1 ---
Pharmacy Intervention Comments: MEDICATION RECONCILIATION COMPLETED ON PATIENT USING EXTERNAL FILL HISTORY FROM PHARMACY AND DEANN REPORT. -LISA ORANTES, DARREND
--- NOTE | 2024-05-12 08:36 | EXP.OP.NOTE ---
Date of procedure: 05/12/24 Pre-op Diagnosis:: 1. IUP at 39w0d 2. History of x 2 3. Maternal obesity 4. Tobacco use 5. Subutex maintenance therapy Post-op Diagnosis:: 1. IUP at 39w0d 2. History of x 2 3. Maternal obesity 4. Tobacco use 5. Subutex maintenance therapy Procedure performed:: Repeat Low Transverse Section Surgeon:: Maureen Lindsay DO Measurement Coordinator(s):: Kavin Montoya MD MACHINE GUNNER:: Rodolfo Howard Anesthesia: spinal Estimated blood loss (mL): 300 Clinical Note:: Ms Lorraine Okeefe is a 29 yo at 39w0d who presents to [facility] for scheduled repeat . History of x 2. complicated by tobacco use, maernal obesity and subutex maintenance therapy. She has had limited care. She refused to complete glucose testing. Baby is active. No leakage of fluid or vaginal bleeding. Operative findings:: 1. Live female baby, Elthea, weighing 6 lb 1 oz. Apgars 5 (1 min), 9 (5 min) 2. Grossly normal appearing uterus, bilateral fallopian tubes and ovaries Operative note:: The risks, benefits and alternatives of the procedure were reviewed with the patient. Informed consent was obtained. Patient was taken to the operating room where spinal anesthesia was placed. The patient received 2 grams of Ancef preoperatively. Patient was placed in dorsal supine position with a leftward tilt. SCDs in place. Nieves catheter had been placed and was draining clear urine prior to the start of the procedure. heart tones were obtained. Patient was then prepped and draped in normal sterile fashion. Allis clamp test was performed to ensure adequate anesthesia. A Pfannenstiel skin incision was made along previous Pfannenstiel scar. This was carried through to underlying layer of fascia. Fascia was incised in midline, extended laterally with García scissors. Superior aspect of fascial incision was grasped with two Jan clamps, elevated up, and rectus muscle dissected off bluntly and sharply with García scissors. Inferior aspect of fascial incision was grasped with two Jan clamps, elevated up, and rectus muscle dissected off bluntly and sharply with García scissors. The retcus muscle was then in the midline and the peritoneum was entered bluntly with a digit. Peritoneal incision was then extended superiorly and inferiorly with good visualization of the bladder. Eliseo retractor was inserted. The lower uterine segment was incised in a transverse fashion. Clear amniotic fluid was noted. Head was delivered without difficulty. Remainder of body was delivered without difficulty. Mouth and nares were bulb suctioned. Spontaneous cry was noted. Delayed cord clamping was performed for 60 seconds. The umbilical cord was clamped and cut. The infant was handed to awaiting pediatric staff in stable condition. Dr. Cortez was present. Apgars were 5(1 min), 9(5 min). Cord blood was obtained. Gentle traction on the umbilical cord and uterine fundal massage delivered the placenta. Placenta was intact. Placenta will be sent to pathology for review. Uterus was cleared of all clots and debris with a moist laparotomy sponge. Corners of the uterine incision were grasped with Allis clamps. The uterine incision was reapproximated with # 1 Vicryl suture in a running, locked stitch. Second layer of the same stitch was used to imbricate the incision. Hemostasis was noted. Posterior cul-de-sac was cleaned with moist laparotomy sponge. Gutters cleared of all clots and debris with a moist laparotomy sponge. Reinspection of the lower uterine segment demonstrated small amount of oozing. Surgicel gel foam was applied over uterine incision. Hemostasis was noted. At this point all instruments and sponges were removed from the pelvis.? The peritoneum was grasped with Linda clamps x 3. The peritoneum was reapproximated with 0 Vicryl suture in a running stitch. The corners of the fascia were grasped with Jan clamps, and the fascia was reapproximated with # 1 Vicryl suture in a running stitch. Subcutaneous tissue was irrigated with clear return of fluids. The subcutaneous tissue was reapproximated with 2-0 Vicryl. The skin was reapproximated with Insorb liliana. Telfa was placed over closed Pfannenstiel skin incision. At the end of the procedure, the uterus was firm with minimal vaginal bleeding. Patient tolerated the procedure well. Instrument, sponges and needle counts were correct x 2. Mom and baby were transported to recovery room in stable condition. Condition: stable Disposition: floor Specimens:: 1. Placenta and umbilical cord 2. Cord blood Complications:: None
--- NOTE | 2024-05-12 08:41 | P.PNANES_ITS ---
[facility] Disclaimer: The information contained in this section may have been updated after the patient was seen, as this information can be updated by other users. Medical History complicated by subutex maintenance, antepartum Maternal tobacco use, antepartum Maternal obesity affecting , antepartum Mild intermittent asthma Dyspnea on exertion Abnormality of lung on CXR Family history of asthma Asthma De Quervain's tenosynovitis, right Pain of right thumb Bilateral leg pain Screening for genetic disease carrier status 05/27/22 - Horizon carrier screen negative for 14 conditions tested include CF, Fragile X and SMA Marijuana use History of drug abuse taking Subutex Surgical History History of tonsillectomy History of x 2 Family History Other COPD (chronic obstructive pulmonary disease) Hyperlipidemia Hypertension Lung cancer Social History Smoking Status: Current every day smoker tobacco type: cigarettes packs per day: 1 second hand exposure: Yes alcohol intake: never substance use type: prescription drug current occupational status: employed Travel in the last 8 weeks: None housing: house number of children: 0 current occupation: [employer] caffeine: Yes [facility] Anesthesia Checklist Patient Identification Patient Identification: Verbal (Name & ) Structural Data Admitted From: Home Planned Operative Procedure/s: c/section Consent for Planned Operative Procedure(s) Verified: Yes NPO Status Verified Time NPO: 00:00 Additional verifications Anesthesia Reactions: No Hx Blood Transfusions: No Blood Transfusion Reaction: No Airway Assessment Mallampati Score:: Class II C-Spine Mobility Assessed: Yes TMJ Mobility Assessed: Yes Dentition: Poor Dentition Neurological Assessment Level of Consciousness: Awake, Alert and Appropriate Anesthesia Plan Anesthesia Risk discussed: Yes Anesthesia Plan: Verified ASA Class: II Anesthesia Type: Spinal
--- NOTE | 2024-05-12 08:43 | P.PNANES_ITS ---
[facility] Anesthesia Record Part I Anesthesia Record I Intake, IV Amount: 1,400 Hydration: Adequate Estimated blood loss (mL): 300 Urine output (mL): 300 Blood Pressure: 113/60 SaO2: 96 Pulse Rate: 72 Airway Patency: Patent Respiratory Rate: 14 Temperature: 97.5 F Patient is:: Awake and Stable Stable to PACU at:: 08:35
[2024-05-12 09:14] LABS: Microscopic,Cath URINE MICROSCOPIC (MICROSCOPIC)
[2024-05-12] MEDS: OXYTOCIN/RINGERS LACTATE 30 UNITS/500 ML BAG 40 UNITS IV (09:15)
[2024-05-12] MEDS: ALBUTEROL-HFA 90MCG/PUFF INHALER 8GM 2 PUFF IH ×2 (09:21→15:52)
[2024-05-12] MEDS: LACTATED RINGERS 1000ML 1,000 ML 125 ML IV ×2 (09:22)
[2024-05-12] MEDS: NICOTINE 21MG/24HR PATCH 21 MG TD (09:22)
[2024-05-12 09:25] LABS: Appearance,Urine/Cath CLEAR (Clear); Bilirubin,Cath Negative (Negative); Blood, Urine/Cath Negative (Negative); Color,Urine/Cath YELLOW (Yellow); Glucose,Urine/Cath (UA) Negative (Negative); Ketones,Urine/Cath 1+ (Negative); Leukocyte Esterase,Cath Negative (Negative); Nitrate,Cath Negative (Negative); PH,Urine/Cath 6.5 (5.0-8.5); Protein,Urine/Cath Negative (Negative)
[2024-05-12 09:54] LABS: Bacteria,Urine/Cath TRACE /lpf; RBC,Urine/Cath Occasional # /hpf (0-3); WBC,Urine/Cath Occasional #/hpf (0-3)
[2024-05-12] MEDS: ACETAMINOPHEN 500MG TAB 1000 MG PO ×3 (10:12→21:30)
[2024-05-12] MEDS: KETOROLAC 30MG/ML VIAL 30 MG IV ×2 (15:33→21:50)
[2024-05-12] MEDS: SIMETHICONE 80MG CHEWABLE TABLET 160 MG PO (20:40)
[2024-05-13] MEDS: SIMETHICONE 80MG CHEWABLE TABLET 160 MG PO (00:51)
[2024-05-13] MEDS: ACETAMINOPHEN 500MG TAB 1000 MG PO ×4 (03:58→21:40)
[2024-05-13] MEDS: KETOROLAC 30MG/ML VIAL 30 MG IV (03:59)
[2024-05-13 07:00] LABS: Basophils % 0.5 % (0.1-2.0); Eosinophils # 0.1 K/mm3 (0.0-0.4); Hematocrit 37.6 % (37.0-47.0); Hemoglobin 12.8 g/dL (12.2-16.2); Lymphocytes # 1.7 K/mm3 (0.7-4.5); Lymphocytes % 18.9 % (10-50); Mean Corpuscular HGB Conc 34.2 g/dL (31.8-35.4); Mean Corpuscular Hemoglobin 31.5 pg (27.0-31.2); Mean Corpuscular Volume 92.3 fl (81-99); Mean Platelet Volume 9.8 fl (7.4-10.4); Monocytes # 0.4 K/mm3 (0.1-1.0); Neutrophils # 6.6 K/mm3 (1.8-7.8); Neutrophils % 75.5 % (37.0-80.0); Platelet Count 122 K/mm3 (142-424); Red Blood Count 4.07 M/mm3 (4.20-5.40); Red Cell Distribution Width 13.4 % (11.5-17.5); White Blood Count 8.8 K/mm3 (4.8-10.8)
--- NOTE | 2024-05-13 07:22 | P.PNANES_ITS ---
[facility] Anesthesia Record Part II Anesthesia Record Part II Discharge Time: 09:05 Destination: Obstetric PACU nurse assessment reviewed?: Yes Patient Condition:: Good Anesthesia Complications:: None Swallowing reflex intact?: Yes Airway Patency: Patent Cyanosis?: No Blood Pressure: 106/61 SaO2: 95 Respiratory Rate: 16 Pulse Rate: 77 Temperature: 97.9 F Mental Status: Alert & Oriented Pain level:: 0 Nausea and/or vomitting:: None Intake, IV Amount: 0 Hydration: Adequate
[2024-05-13 07:23] VITALS: BP 106/61; PULSE 77; RESP 16; TEMP 36.6; O2SAT 95
[2024-05-13] MEDS: BUPRENORPHINE 8MG ODT 12 MG SL (08:20)
[2024-05-13 09:30] VITALS: BP 126/60; PULSE 68; RESP 20; TEMP 37.1; O2SAT 95
[2024-05-13] MEDS: ALBUTEROL-HFA 90MCG/PUFF INHALER 8GM 2 PUFF IH ×2 (09:33→14:35)
--- NOTE | 2024-05-13 11:10 | EXP.ACUTE.PN ---
Subjective *Date: 05/13/24 *Time: 11:10 Interval history: POD # 1 s/p RLTCS Resting comfortably. Pain controlled. Breast and formula feeding. Voiding without difficulty and passing flatus. Tolerating regular diet. Denies fever/chills, chest pain and shortness of breath. No headaches, vision changes or RUQ pain. Admits to bilateral lower extremity swelling. No calf tenderness. Ambulating well ad maria luisa. Medical Exam Vital signs and Labs for Last 24 Hours: Vital Signs Temp Pulse Resp BP Pulse Ox O2 Del Method 05/13/24 09:30 98.8 F 68 20 126/60 95 Room Air 05/13/24 07:23 16 05/12/24 15:50 98.1 F 70 20 124/76 99 Room Air Intake and Output 05/12/24 05/13/24 05/13/24 23:59 07:59 15:59 Intake Total 0 / 0 Balance 0 / 0 Intake: Intake, Total IV Amount 0 / 0 Laboratory Results - last 24 hr 05/13/24 06:43: WBC 8.8, RBC 4.07 L, Hgb 12.8, Hct 37.6, MCV 92.3, MCH 31.5 H, MCHC 34.2, RDW 13.4, Plt Count 122 L D, MPV 9.8, Neut % (Auto) 75.5, Lymph % (Auto) 18.9, [place] % (Auto) 4.0, Eos % (Auto) 1.0, Baso % (Auto) 0.5, Neut # (Auto) 6.6, Lymph # (Auto) 1.7, [place] # (Auto) 0.4, Eos # (Auto) 0.1, Baso # (Auto) 0.0 I & O for Labs for Last 24 Hours: Intake & Output 05/10/24 05/11/24 05/12/24 05/13/24 23:59 23:59 23:59 23:59 Intake Total 1400 / 1400 0 / 0 Balance 1400 / 1400 0 / 0 Weight 209 lb 0.007 oz Head: Present atraumatic and normocephalic ENT: Present mucous membranes moist Neck: Present normal inspection Respiratory: Present CTA bilaterally and normal respiratory effort Cardiac: Present Reg Rate and Rhythm GI: Present soft and normal bowel sounds; Absent distention or tenderness Comments:: Uterine fundus firm and below umbilicus, pfannenstiel incision clean/dry/intact with steri strips Rectal (female): Present deferred (female): Present deferred Neuro: Present alert, awake and moves all extremities Assessment and Plan *Assessment and plan (1) S/P : Status: Acute Category: Surgical Code(s): Z98.891 - History of uterine scar from previous surgery (2) Tobacco smoking affecting : Status: Resolved Category: Medical Code(s): O99.330 - Smoking (tobacco) complicating , unspecified trimester (3) complicated by subutex maintenance, antepartum: Status: Acute Category: Medical Code(s): O99.320 - Drug use complicating , unspecified trimester; F11.20 - Opioid dependence, uncomplicated (4) Maternal tobacco use, antepartum: Status: Acute Category: Medical Code(s): O99.330 - Smoking (tobacco) complicating , unspecified trimester (5) Maternal obesity affecting , antepartum: Status: Acute Category: Medical Code(s): O99.210 - Obesity complicating , unspecified trimester (6) Mild intermittent asthma: Status: Chronic Category: Medical Code(s): J45.20 - Mild intermittent asthma, uncomplicated (7) History of drug abuse: Problem Comment: taking Subutex Status: Acute Category: Medical Code(s): F19.11 - Other psychoactive substance abuse, in remission (8) History of : Problem Comment: x 2 Status: Acute Category: Surgical Code(s): Z98.891 - History of uterine scar from previous surgery Plan Continue routine care Encouraged increased ambulation AM Hgb 12.8 (13.5 on admission) Plan d/c POD # 2 or POD # 3
[2024-05-13] MEDS: NICOTINE 21MG/24HR PATCH 21 MG TD (12:29)
[2024-05-13] MEDS: IBUPROFEN 400 MG TABLET 800 MG PO ×2 (12:29→21:40)
--- NOTE | 2024-05-13 15:14 | SW/DCPLANNER ---
Addendum entered by Brenna Maurer 05/17/24 11:29: Infant cord screen is positive for Subutex. Addendum entered by Brenna Maurer 05/13/24 15:25: Per Madelin Jones there is no further concern regarding patient's ability to care for infant at home. At this time I will not make a report to Central Intake due to negative drug screens, being enrolled in Subutex [facility] and appropriately caring for . I have requested OB staff contact me should if they have any further concerns. Original Note: I received a referral for this patient regarding history of drug use/Subutex. Patient delivered female (Fariha Garnica (last name is undecided Darren/Lizbeth)) on 05/12/24. Infant's father (Andrew Banks 01/15/92) was present at the time of my visit. Patient stated that Andrew will not be living w/ patient and infant at time of discharge. Patient will reside at [address] [place] [address] in [place] w/ her grandmother (Fariha Nieves) and two other children (Felisha Banks 05/12/20 and Leigh Banks 11/21/22). Patient stated that she does currently have an open CPS case w/ other two children regarding incident of leaving children unattended in vehicle. Patient stated that CPS worker is Madelin Jones. I have attempted to reach out to Madelin: no answer VM left. Patient stated that children were never removed from her care and case will close on 06/07/24. Patient is already established w/ [facility] and is interested in [facility]. I will reach out to [place] w/ [facility] regarding referral. Patient stated that she has the following items at home: crib, carseat, clothing, diapers and will be bottle feeding. Patient will have transportation to all follow up appointments. PED MD will be Dr Cortez. Patient is currently established w/ [facility] in [place]. Per OB nursing staff patient is appropriate w/ infant. I will follow up w/ Madelin Jones CPS prior to discharge. Per patient she may discharge home tomorrow 05/14/24.
[2024-05-13 16:00] VITALS: BP 111/58; PULSE 61; RESP 15; TEMP 36.7; O2SAT 97
[2024-05-13 20:01] VITALS: BP 127/80; PULSE 72; RESP 20; TEMP 36.8; O2SAT 99
[2024-05-14] MEDS: IBUPROFEN 400 MG TABLET 800 MG PO (04:12)
[2024-05-14] MEDS: ACETAMINOPHEN 500MG TAB 1000 MG PO (04:12)
[2024-05-14 04:26] VITALS: BP 117/62; PULSE 61; RESP 18; TEMP 36.8; O2SAT 99
[2024-05-14 07:28] VITALS: PULSE 118; RESP 64; TEMP 37.2
[2024-05-14 07:45] VITALS: BP 122/88; PULSE 75; RESP 18; TEMP 37.1; O2SAT 100
[2024-05-14] MEDS: LANOLIN CREAM 40GM TP (09:16)
[2024-05-14] MEDS: BUPRENORPHINE 8MG ODT 12 MG SL (09:16)
[2024-05-16 07:52] LABS: Buprenorphine Positive (.); Norbuprenorphine Positive (.)
--- NOTE | 2024-05-25 10:34 | EXP.DC.SUM ---
General Admission date:: 05/12/24 Discharge date: 05/14/24 HPI HPI HPI: Ms Lorraine Okeefe is a 29 yo at 39w0d who presents to [facility] for scheduled repeat . History of x 2. complicated by tobacco use, maernal obesity and subutex maintenance therapy. She has had limited care. She refused to complete glucose testing. Baby is active. No leakage of fluid or vaginal bleeding. Hospital Course Hospital Course Hospital Course: She underwent a repeat lower segment transverse section on May 12, 2024. She delivered a liveborn female child weighing 6 pounds 1 ounces. The baby had Apgars of 5 at 1 minute and 9 at 5 minutes. She has done well and has remained afebrile with her hospitalization. She is eating and drinking and ambulating. She is bottlefeeding. Her incision is clean and dry. She is discharged home to follow-up with Dr. Lindsay in 2 weeks time. She was given the usual instructions with respect to limiting her activity, driving and sexual activity. She will continue with her vitamins and iron. She does not want to take any narcotics. Her condition on discharge is stable and improved. Exam Data for Last 24 hours Vital signs and Labs for Last 24 Hours: Temp Pulse Resp BP Pulse Ox O2 Del Method 98.7 F 75 18 122/88 100 Room Air 05/14/24 07:45 05/14/24 07:45 05/14/24 07:45 05/14/24 07:45 05/14/24 07:45 05/14/24 07:45 Constitutional Constitutional: no acute distress *Routine HEENT Exam Head: Present normocephalic *Routine Neck Exam Neck: Present supple *Routine Respiratory Exam Respiratory: Present normal respiratory effort; Absent accessory muscle use DS: Diagnosis Discharge Diagnosis (1) S/P : Status: Acute Code(s): Z98.891 - History of uterine scar from previous surgery (2) Tobacco smoking affecting : Status: Resolved Code(s): O99.330 - Smoking (tobacco) complicating , unspecified trimester Qualifiers: Trimester: unspecified trimester Qualified Code(s): O99.330 - Smoking (tobacco) complicating , unspecified trimester (3) complicated by subutex maintenance, antepartum: Status: Acute Code(s): O99.320 - Drug use complicating , unspecified trimester; F11.20 - Opioid dependence, uncomplicated (4) Maternal tobacco use, antepartum: Status: Acute Code(s): O99.330 - Smoking (tobacco) complicating , unspecified trimester (5) Maternal obesity affecting , antepartum: Status: Acute Code(s): O99.210 - Obesity complicating , unspecified trimester Qualifiers: Obesity type affecting : other obesity due to excess calories Qualified Code(s): O99.210 - Obesity complicating , unspecified trimester; E66.09 - Other obesity due to excess calories (6) Mild intermittent asthma: Status: Chronic Code(s): J45.20 - Mild intermittent asthma, uncomplicated Qualifiers: Asthma complication type: unspecified Qualified Code(s): J45.20 - Mild intermittent asthma, uncomplicated (7) History of drug abuse: Status: Acute Code(s): F19.11 - Other psychoactive substance abuse, in remission Problem details: taking Subutex (8) History of : Status: Acute Code(s): Z98.891 - History of uterine scar from previous surgery Problem details: x 2 Meds Home Medications and Allergies Home Medications ?Medication ?Instructions ?Recorded ?Confirmed ?Type buprenorphine HCl 8 mg sublingual 12 mg sublingual DAILY 10/29/23 05/12/24 History tablet ferrous sulfate 325 mg (65 mg 325 mg PO DAILY #30 tabs 12/31/23 05/12/24 Rx iron) tablet albuterol sulfate 90 mcg/actuation 2 puff inhalation Q4HP PRN 05/12/24 05/12/24 History aerosol inhaler shortness of breath or wheezing ibuprofen 400 mg tablet 400 mg PO Q4HP PRN Moderate Pain 05/14/24 Rx #40 tabs vits no.[id number]-ferrous fum 1 tab PO DAILY #30 tabs 05/14/24 Rx 28 mg iron-folic acid 800 mcg tablet (Classic ) sertraline 50 mg tablet 50 mg PO DAILY #30 tabs 05/21/24 Rx New Prescriptions to Start Prescriptions: ibuprofen Kavin Montoya vit [id number] [Classic ] Kavin Montoya Allergies Allergy/AdvReac Type Severity Reaction Status Date / Time amoxicillin Allergy Mild upseet Verified 05/07/24 09:59 belly; diarrhea prednisone Allergy Mild Verified 05/12/24 05:45 strawberry Allergy Unknown HIVES, Verified 05/07/24 09:59 [From STRAWBERRIES SWELLING (FOOD/DRUG)] OF THROAT azithromycin Allergy Verified 05/07/24 09:59 codeine Allergy Verified 05/07/24 09:59 From STRAWBERRIES (FOOD/DRUG) Allergy Unknown HIVES, Uncoded 05/07/24 09:59 SWELLING OF THROAT Discharge Plan Disposition Patient Disposition: Home, Self-Care Condition: Good Discharge Order Discharge Orders: Discharge Order (Routine); Ordered 05/14/24 Ordered By: Kavin Montoya Follow up Plan Follow up with: Maureen Lindsay DO [Staff Physician] - 05/26/24 2:45 pm Prescriptions/Medication Reconciliation: New ibuprofen 400 mg tablet 400 mg PO Q4HP PRN (Reason: Moderate Pain) Qty: 40 0RF Continued buprenorphine HCl 8 mg tablet, sublingual 12 mg sublingual DAILY Patient Comments: PATIENT REPORTS 1.5 PILLS PER DAY ferrous sulfate 325 mg (65 mg iron) tablet 325 mg PO DAILY Qty: 30 4RF albuterol sulfate 90 mcg/actuation HFA aerosol inhaler 2 puff IH Q4HP PRN (Reason: shortness of breath or wheezing) Classic 28 mg iron- 800 mcg tablet 1 tab PO DAILY Qty: 30 3RF No Action sertraline 50 mg tablet 50 mg PO DAILY Qty: 30 2RF Problem Reconciliation Problems Reviewed?: Yes Patient Discharge Instructions ACTIVITY: No heavy lifting DIET: continue same diet Additional Instructions: No heavy lifting or driving until released per OBGYN Nothing in the vagina for 6 weeks No tub baths until released Hydrate well with water Stand Alone Forms: [facility] Work Release Patient Instructions: Depression, Hemorrhage, DI for , DI for Pre-eclampsia, Catheter-associated Urinary Tract Infection, H Post Discharge Instructions Print Language: Hebrew Providers Primary Care Provider: Jl Ferguson Provider: Maureen Lindsay Attending Provider: Maureen Lindsay
== END 2024-05-14 13:09 | disposition home or self-care (01) | DRG 788 ==
PROVIDERS: Admitting Provider Obstetrics & Gynecology; PCP Internal Medicine; Visit Provider Obstetrics & Gynecology
PROC: 10D00Z1 Extraction of Products of Conception, Low, Open Approach (ICD-10-PCS; principal; 2024-05-12 07:30)
DX: O34.211 Maternal care for low transverse scar from previous cesarean delivery (principal); Z3A.39 39 weeks gestation of pregnancy; Z37.0 Single live birth; O99.214 Obesity complicating childbirth; O99.334 Smoking (tobacco) complicating childbirth; F17.210 Nicotine dependence, cigarettes, uncomplicated; F19.11 Other psychoactive substance abuse, in remission
CPT/HCPCS: 59514; 36415; 59025; 80048; 80307; 80348; 81001; 82800; 85025; 86850; 87086; G0480; J0571; J1885; J7120

== ENCOUNTER 2024-12-11 19:21 | Emergency (ER) | payer OTHER, SELFPAY ==
[2024-12-11 19:29] VITALS: BP 138/77; PULSE 116; RESP 18; TEMP 37.9; O2SAT 98; BMI 33.3
[2024-12-11] MEDS: IBUPROFEN 600 MG TABLET PO (19:47)
[2024-12-11] MEDS: CLINDAMYCIN 150MG CAPSULE 300 MG PO (19:47)
[2024-12-11] MEDS: ACETAMINOPHEN 500MG TAB 1000 MG PO (19:48)
[2024-12-11 19:59] VITALS: BP 137/70; PULSE 110; RESP 17; TEMP 37.8; O2SAT 99
--- NOTE | 2024-12-31 19:02 | ED_ITS ---
<Statement entered by Kathrin Mcmahan MD - 01/01/25 06:40> I was consulted by the PITA, and we discussed the complexity of problems being addressed. I approved the treatment and management plan for this patient's care in the emergency department, thus performing a substantive portion of the medical decision making. Kathrin Mcmahan MD Discharge Plan Disposition Patient Disposition: Home, Self-Care Condition: Good Prescriptions Prescriptions: No Action cephalexin 500 mg capsule 500 mg PO BID 14 Days Qty: 28 0RF buprenorphine HCl 8 mg tablet, sublingual 8 mg SUBLINGUAL DAILY Referrals Follow up/Referrals: Jl Ferguson DO [Primary Care Provider] - See instructions Activity Restrictions/Add. Instructions Additional Instructions/Restrictions: Please follow-up with dentistry. Return to the ED for worsening of condition. Please take your medications as directed. Clinical Impressions Clinical Impression: Chronic dental pain Instructions Patient Instructions: DI for Dental Pain Print Language Print Language: Kazakh Discharge ED Provider: Kathrin Mcmahan General Adult HPI General Chief complaint: Dental/Oral Stated complaint: Toothache Left side Time Seen by Provider: 12/11/24 19:37 Mode of Arrival: Ambulatory Source of Information: Patient Limitations: No Limitations Description of Symptoms (Recalled from ER Triage Doc. by RN): Patient presents ambulatory to triage. Right sided facial swelling noted from doorway. Patient states she has a dental abscess. States she called her dentist and they are out of the office until the . States she has been seen for this before. States she was referred to an oral surgeon in [place], but I forgot who it was. Denies fevers. Denies N/V. Denies diarrhea. States she took Tylenol last night. History of Present Illness HPI narrative: 29 year old female presents to the ED for dental pain x 2-3 days, has known dental abscess and is scheduled for dental surgery but unsure with who. Related Data Home Medications ?Medication ?Instructions ?Recorded ?Confirmed buprenorphine HCl 8 mg sublingual 8 mg sublingual DAILY 12/11/24 12/14/24 tablet Previous Rx's ?Medication ?Instructions ?Recorded cephalexin 500 mg capsule 500 mg PO BID 14 days #28 caps 12/14/24 Allergies Allergy/AdvReac Type Severity Reaction Status Date / Time amoxicillin Allergy Mild upseet Verified 12/14/24 13:18 belly; diarrhea prednisone Allergy Mild Unknown Verified 12/14/24 13:18 allergy reaction strawberry (From Allergy Unknown HIVES, Verified 12/14/24 13:18 STRAWBERRIES (FOOD/DRUG)) SWELLING OF THROAT azithromycin Allergy Unknown Verified 12/14/24 13:18 allergy reaction codeine Allergy Unknown Verified 12/14/24 13:18 allergy reaction From STRAWBERRIES (FOOD/DRUG) Allergy Unknown HIVES, Uncoded 05/07/24 09:59 SWELLING OF THROAT [facility] Disclaimer: The information contained in this section may have been updated after the patient was seen, as this information can be updated by other users. Medical History complicated by subutex maintenance, antepartum Maternal tobacco use, antepartum Maternal obesity affecting , antepartum Mild intermittent asthma Dyspnea on exertion Abnormality of lung on CXR Family history of asthma Asthma De Quervain's tenosynovitis, right Pain of right thumb Bilateral leg pain Screening for genetic disease carrier status 05/27/22 - [facility] carrier screen negative for 14 conditions tested include CF, Fragile X and SMA Marijuana use History of drug abuse taking Subutex Surgical History S/P History of tonsillectomy History of x 2 Family History Other COPD (chronic obstructive pulmonary disease) Hyperlipidemia Hypertension Lung cancer Social History Smoking Status: Current every day smoker tobacco type: cigarettes packs per day: 1 second hand exposure: Yes alcohol intake: never substance use type: prescription drug current occupational status: employed Travel in the last 8 weeks: None housing: house number of children: 0 current occupation: [employer] caffeine: Yes Other Medical History Have you received the Flu Vaccine for this season: No Have you received the Pneumonia Vaccine: No ROS Obtained: Yes Systems reviewed as appropriate & no additional complaints except as documented Physical Exam General General appearance: alert and in no apparent distress Head Head exam: atraumatic and normocephalic Eye Eye exam: Present normal appearance and PERRL ENT ENT exam: Present other (poor dental health, no obvious abscess, right upper dental tenderness ) Neck Neck exam: Present normal inspection Chest Chest inspection: Present normal inspection and symmetric chest wall rise; Absent tenderness Respiratory Respiratory exam: Present normal lung sounds bilaterally Cardiovascular Cardiovascular exam: Present regular rate Abdominal Exam Abdominal exam: Present soft and normal bowel sounds; Absent tenderness Extremities Exam Extremities exam: Present normal inspection and full ROM Back Exam Back exam: Present normal inspection and full ROM Neurological Exam Neurological exam: Present alert and oriented X3 Psychiatric Psychiatric exam: Present normal affect and normal mood Skin Skin exam: Present warm and dry Medical Decision Making Medical Records Screening: Per USPSTF and CDC recommendations, given the prevalence of disease in our region, it is our hospital?s policy to screen for HIV and viral Hepatitis for all patients aged 18 and over and those with ongoing risk factors. Jose Carlos Inquiry Pt receiving controlled substance: No Vital Signs: 12/11/24 19:29 12/11/24 19:59 Temperature 100.2 F H 100.1 F H Temperature Source Oral Oral Pulse Rate 110 H Pulse Rate [Radial] 116 H Respiratory Rate 18 17 Blood Pressure 137/70 Blood Pressure [L Arm] 138/77 Blood Pressure Mean [L Arm] 97 Blood Pressure Source Automatic Cuff Blood Pressure Source [L Arm] Manual Cuff/ Doppler Blood Pressure Position Sitting 02 Sat by Pulse Oximetry 98 Oxygen Delivery Method Room Air Room Air Orders (Tests/Meds): ED MEDICATIONS Discontinued Medications Generic Name Dose Route Start Last Admin Trade Name Anjali PRN Reason Stop Dose Admin Acetaminophen 1,000 mg 12/11/24 19:43 12/11/24 19:48 Acetaminophen 500mg Tab PO 12/11/24 19:44 1,000 mg ONCE ONE Administration Clindamycin HCl 300 mg 12/11/24 21:00 12/11/24 19:47 Clindamycin 150mg Capsule PO 12/18/24 20:59 300 mg QID MARTIN Administration Ibuprofen 600 mg 12/11/24 19:46 12/11/24 19:47 Ibuprofen 600 Mg Tablet PO 12/11/24 19:47 600 mg ONCE ONE Administration Medical Decision Narrative: In summary, pt is a 29 year old female presents to the ED for dental pain x 2-3 days, has known dental abscess and is scheduled for dental surgery but unsure with who. She has taken acetaminophen without relief. Denies any significant PMHx other than poor dental health. Pt is alert, oriented, hemodynamically stable. She has right upper dental tenderness around molar, no obvious facial swelling. I discussed with patient we can place her on oral antibiotics since she is already scheduled for follow up. I discussed the importance of completing the entire abx, keeping her follow up and strict return precautions to the ED. Pt verbalized an understanding Critical Care Critical Care Time Critical Care Time: No
== END 2024-12-11 20:00 | disposition home or self-care (01) ==
LOC: ER 19:50
PROVIDERS: Emergency Provider Student in an Organized Health Care Education/Training Program; PCP Internal Medicine
DX: K08.89 Other specified disorders of teeth and supporting structures (principal); K08.9 Disorder of teeth and supporting structures, unspecified; F17.210 Nicotine dependence, cigarettes, uncomplicated
CPT/HCPCS: 99282

== ENCOUNTER 2024-12-14 13:40 | Outpatient (CLI) | payer OTHER, SELFPAY ==
[2024-12-14 19:13] LABS: Basophils % 0.6 % (0.1-2.0); Eosinophils # 0.1 K/mm3 (0.0-0.4); Eosinophils % 2.3 % (0.1-12.0); Hematocrit 42.9 % (37.0-47.0); Hemoglobin 14.4 g/dL (12.2-16.2); Lymphocytes # 1.6 K/mm3 (0.7-4.5); Lymphocytes % 32.2 % (10-50); Mean Corpuscular HGB Conc 33.6 g/dL (31.8-35.4); Mean Corpuscular Hemoglobin 29.3 pg (27.0-31.2); Mean Corpuscular Volume 87.4 fl (81-99); Monocytes # 0.3 K/mm3 (0.1-1.0); Neutrophils # 2.8 K/mm3 (1.8-7.8); Neutrophils % 57.9 % (37.0-80.0); Platelet Count 144 K/mm3 (142-424); Red Blood Count 4.91 M/mm3 (4.20-5.40); Red Cell Distribution Width 11.8 % (11.5-17.5); White Blood Count 4.9 K/mm3 (4.8-10.8)
[2024-12-14 22:18] LABS: Albumin Level 4.3 g/dl (3.5-5.0); Chloride 103 mmol/L (98-107); Potassium 4.3 mmoL/L (3.5-5.1); Sodium 139 mmol/L (136-145)
[2024-12-14 22:20] LABS: Alanine Aminotransferase 18 U/L (12-78); Blood Urea Nitrogen 12 mg/dl (7-17); Estimated Glomerular Filt Rate 100 ml/min (>60); GFR (African American) 121 ML/MIN (>60)
[2024-12-14 22:21] LABS: Albumin/Globulin Ratio 1.5 (1.1-1.8); Alkaline Phosphatase 79 U/L (38-126); Anion Gap 12.3 mEq/L (5-15); Aspartate Amino Transferase 29 U/L (14-36); Bilirubin,Total 0.4 mg/dl (0.2-1.3); Calcium 9.2 mg/dl (8.4-10.2); Carbon Dioxide 28 mmol/L (22.0-30.0); Chol/HDL Ratio 6.6 (1-3.5); Cholesterol 199 mg/dl (140-200); Globulin 2.8 g/dL (1.3-3.2); Glucose 88 mg/dl (74-100); HDL Cholesterol 30 mg/dl (40-60); Total Protein,Serum 7.1 g/dl (6.3-8.2); Triglycerides 172 mg/dl (30-150); VLDL Cholesterol 34 mg/dL (0-40)
[2024-12-14 22:33] LABS: Direct LDL Cholesterol 114.63 mg/dL (100-129)
[2024-12-14 22:35] LABS: 25-OH Vitamin D, Total 26.8 ng/mL (30-100)
== END 2024-12-14 23:59 | disposition home or self-care (01) ==
LOC: LAB.DROPOF 12-15 11:55
PROVIDERS: PCP Internal Medicine; Visit Provider Internal Medicine
DX: E55.9 Vitamin D deficiency, unspecified (principal); E66.9 Obesity, unspecified; Z68.35 Body mass index [BMI] 35.0-35.9, adult; F19.11 Other psychoactive substance abuse, in remission
CPT/HCPCS: 80053; 80061; 82306; 84443; 85025

== ENCOUNTER 2025-02-09 09:43 | Outpatient (CLI) | payer OTHER, SELFPAY ==
[2025-02-09 10:00] VITALS: BP 111/63; PULSE 73; RESP 18; TEMP 36.7; O2SAT 98
[2025-02-09] MEDS: cefTRIAXone 500MG VIAL 500 MG IM (10:00)
== END 2025-02-09 10:15 | disposition home or self-care (01) ==
LOC: INF 09:45
PROVIDERS: PCP Family Medicine; Visit Provider Nurse Practitioner Obstetrics & Gynecology
DX: N76.0 Acute vaginitis (principal)
CPT/HCPCS: 96372; J0696

== ENCOUNTER 2025-09-09 13:52 | Outpatient (CLI) | payer OTHER, SELFPAY | END 2025-09-09 23:59 | disposition home or self-care (01) | LOC: LAB 13:53 | PROVIDERS: PCP Family Medicine; Visit Provider Obstetrics & Gynecology | DX: Z34.90 Encounter for supervision of normal pregnancy, unspecified, unspecified trimester (principal); N92.6 Irregular menstruation, unspecified; Z3A.00 Weeks of gestation of pregnancy not specified | CPT/HCPCS: 36415; 84144; 84702 ==